=== PATIENT | male | born 1930 | race Hispanic/Latino ===

== ENCOUNTER 2018-01-14 02:39 | Emergency (ER) | payer MEDICARE, BC ==
[2018-01-14 03:56] LABS: Troponin I 0.019 ng/mL (< 0.028)
== END 2018-01-14 06:40 | disposition home or self-care (01) ==
LOC: ERS 02:39
DX: R19.00 Intra-abdominal and pelvic swelling, mass and lump, unspecified site (principal); R11.2 Nausea with vomiting, unspecified; E11.9 Type 2 diabetes mellitus without complications; I11.0 Hypertensive heart disease with heart failure; I50.9 Heart failure, unspecified; I25.10 Atherosclerotic heart disease of native coronary artery without angina pectoris; E78.5 Hyperlipidemia, unspecified; F41.9 Anxiety disorder, unspecified; F17.210 Nicotine dependence, cigarettes, uncomplicated; Z86.73 Personal history of transient ischemic attack (TIA), and cerebral infarction without residual deficits; Z79.82 Long term (current) use of aspirin; Z79.84 Long term (current) use of oral hypoglycemic drugs; Z79.02 Long term (current) use of antithrombotics/antiplatelets; Z79.899 Other long term (current) drug therapy
CPT/HCPCS: 36415; 83605; 84484; 93005; 96360

== ENCOUNTER 2018-02-12 12:56 | Inpatient (IN) | payer MEDICARE, BC ==
[2018-02-12 14:57] LABS: Troponin I 0.015 ng/mL (< 0.028)
[2018-02-12] MEDS ORDERED: Dextrose 50% Abboject 50 ML SYRINGE SLOW IVP PRN (16:56)
[2018-02-12] MEDS ORDERED: Ondansetron HCl/PF 4 MG/2 ML Vial IVP PRN (16:56)
[2018-02-12] MEDS ORDERED: Dextrose 5% in Water 1,000 ML IV PRN (16:56)
[2018-02-12] MEDS ORDERED: HumaLOG 300 UNITS/3 ML VIAL SC PRN (16:56)
[2018-02-12] MEDS ORDERED: Ondansetron ODT 4 MG TAB PO PRN (16:56)
[2018-02-12] MEDS ORDERED: HYDROcodone/Acetaminophen 5/325 mg Tablet PO PRN (16:56)
[2018-02-12] MEDS ORDERED: Enoxaparin Sodium 30 MG/0.3 ML SYRINGE SC SCH (16:56)
[2018-02-12 18:09] VITALS: BMI 24.6
--- NOTE | 2018-02-12 18:34 | CON ---
DATE OF CONSULTATION: 02/12/2018 PRIMARY RECEIVER SETTER: Charlee Brewster M.D. REASON FOR CONSULTATION: Bradycardia. HISTORY OF PRESENT ILLNESS: Mr. Sebastian is a pleasant 87-year-old white gentleman who comes to the [facility] for this abdominal pain. He was seen in the [facility] and was found to have heart rates charisma n to the 30s, so he was transferred over to this facility for admission. He has been having a slow h eart rate for a long long time. He has even had his metoprolol discontinued more recently secondary to this. He is followed by Dr. Brewster and he recently was seen for preoperative evaluation as he is gaines ving all these abdominal cramps and he was scheduled to have an echocardiogram as he has had a cardio myopathy in the past. Last EF was about a 43% in an MPI in 2017. In 2016, it was much lower at 25%- 30%. During this evaluation, he was found to be in atrial fibrillation with a slow ventricular respo nse, heart rates as low as 36 on recording on strips in the chart. Mr. Sebastian did not feel any lighth eadedness. No syncope or presyncope. PAST MEDICAL HISTORY: Include, 1. Coronary disease with stent placement in [place] 2007. 2. Peripheral vascular disease, status post left carotid endarterectomy in [place] 2008. 3. Cardiomyopathy, EF in 2016 was 25% to 30%; on stress test in 2017 it was 43%. 4. Hypertension. 5. Hyperlipidemia. 6. Type 2 diabetes. OUTPATIENT MEDICATIONS: Include, 1. Plavix 75 mg a day. 2. Lisinopril 10 mg a day. 3. Nitro sublingual. 4. Simvastatin 80 mg 1/2 tablet at bedtime. 5. Metformin 500 mg at bedtime. 6. Omeprazole 20 mg a day. 7. Aspirin 81 day a day. 8. Lasix 40 mg a day. 9. Amlodipine 5 mg a day. ALLERGIES: PENICILLIN. SOCIAL HISTORY: No alcohol, tobacco or drugs. 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 FAMILY HISTORY: Noncontributory. REVIEW OF SYSTEMS: A 12-point review of systems was done and is all negative unless stated in histor y of present illness. PHYSICAL EXAMINATION: VITAL SIGNS: Temperature 97.2, pulse between 36 and 60, blood pressure 118/62. GENERAL: Awake, alert, oriented x3, in no distress. HEENT: Normocephalic, atraumatic. NECK: Supple. LUNGS: Lungs are clear. HEART: Regular rate and heart rate in the 40s-50s. ABDOMEN: Soft, positive bowel sounds. EXTREMITIES: No edema. SKIN: Warm and dry. LABORATORY WORK: Reviewed. Troponin is negative. Glucose is normal. At outside facility, his sodi um is 141, potassium is 4.9, chloride of 108, CO2 of 23, anion gap of 15, glucose of 86, BUN of 24, c reatinine 1.5. GFR was 45, calcium 9.1, total bilirubin 0.5, alkaline phosphatase 67, AST 13, ALT 11 , total protein 6.8, albumin of 3.8, lipase of 25. Lactic acid undetectable, troponin is undetectabl e. White count of 6.1, red cells of 3.7, hemoglobin 9.6, hematocrit 29, platelet count of 320. Some EKG strips were reviewed. He is in atrial fibrillation with slow ventricular response at times down to the mid 30s. ASSESSMENT AND PLAN: 1. Atrial fibrillation with slow ventricular response. 2. Bradycardia, currently asymptomatic. 3. History of cardiomyopathy. 4. History of coronary artery disease, stable at this time. 5. Abdominal pain. PLAN: At this time, I am not 100% sure that he is a candidate for pacemaker. He has been completely asymptomatic and he has been dealing with his bradycardia for a long long time. He has been off of beta blockers as well. His atrial fibrillation is newly diagnosed and he is only on aspirin for stro ke prophylaxis given that he needs to be cleared by GI prior to anything as he is having a lot of abd ominal cramping. At this time, it is a class 2A indication to put in a pacemaker for heart rates und er 40. No AV mariluz blocking agents which would qualify Mr. Sebastian. We will continue to monitor over the weekend. We will get an echocardiogram to assess LV function and see what he really needs an AIC D and not just a pacemaker. Dr. Brewster is his primary Cardiology. We will leave the final decision to her, but at this time, most likely will need a pacemaker. Thank you for letting us to participate in the care of your patient.
[2018-02-12] MEDS: Famotidine/PF 20 mg/2ml Vial SLOW IVP SCH (22:33)
[2018-02-13 04:36] LABS: #Eosinphils 0.1 thou/uL (0.0-0.7); #Lymphocytes 1.1 thou/uL (1.20-3.40); #Monocytes 0.5 thou/uL (0.11-0.59); #Neutrophils 3.7 thou/uL (1.40-6.50); %Basophils 0.8 % (0.0-1.0); %Eosinophils 1.8 % (0.0-10.0); %Lymphocytes 20.4 % (21.0-51.0); %Monocytes 9.1 % (0.0-10.0); %Neutrophils 67.8 % (42.0-75.0); Hemoglobin 9.4 g/dL (14.0-18.0); Mean Corpuscular HGB CONC 33.4 g/dL (32.0-36.0); Mean Corpuscular Hemoglobin 27.3 pg (27.0-31.0); Mean Corpuscular Volume 81.8 fl (80.0-94.0); Mean Platelet Volume 6.7 fL (7.4-10.4); Platelet Count 307 thou/uL (130-400); Red Blood Cell (RBC) Count 3.43 mill/uL (4.70-6.10); White Blood Cell (WBC) Count 5.4 thou/uL (4.8-10.8)
[2018-02-13 04:42] LABS: Hemoglobin A1c 5.6 % (4.0-6.0)
[2018-02-13 04:43] LABS: ALT (SGPT) 9 U/L (8-55); AST (SGOT) 13 U/L (5-34); Albumin 3.5 g/dL (3.4-4.8); Alkaline Phosphatase 64 U/L (40-150); Anion Gap 10 mmol/L (10-20); BUN (Urea Nitrogen) 23 mg/dL (8.4-25.7); Bilirubin, Total 0.5 mg/dL (0.2-1.2); Calc. Creatinine Clearance 44 mL/min (70-130); Calcium 8.8 mg/dL (7.8-10.44); Carbon Dioxide 24 mmol/L (23-31); Cardiac Risk 3.3 (Less than 4.5); Chloride 108 mmol/L (98-107); Cholesterol 105 mg/dl (< 200 Desired); Estimated GFR-MDRD 56; Globulin 2.6 g/dL (2.4-3.5); Glucose 96 mg/dL (83-110); HDL Cholesterol 32 mg/dL (>60 Neg Risk); LDL Cholesterol, Calculated 56 mg/dL; Magnesium 2.1 mg/dL (1.6-2.6); Protein, Total 6.1 g/dL (5.8-8.1); Sodium 138 mmol/L (136-145); Triglycerides 83 mg/dL (Less than 150)
[2018-02-13] MEDS: Furosemide 40 MG TAB PO SCH (08:15)
[2018-02-13] MEDS: Famotidine/PF 20 mg/2ml Vial SLOW IVP SCH (08:15)
[2018-02-13] MEDS: Clopidogrel Bisulfate 75 MG TAB PO SCH (08:15)
[2018-02-13] MEDS: Lisinopril 20 MG TAB PO SCH (08:17)
--- NOTE | 2018-02-13 13:52 | PDOC.CTH ---
Cardiology Progress Note - Subjective He is doing well. - Objective Vital Signs Temp Pulse Resp BP BP Pulse Ox 02/13/18 11:31 97.9 F 47 L 16 97 02/13/18 08:17 152/68 H 02/13/18 08:15 98.0 F 45 L 18 152/68 H 99 02/13/18 07:54 98.0 F 45 L 18 99 02/13/18 04:15 98.1 F 35 L 12 145/54 H 98 Weight 167 lb 02/12/18 02/13/18 02/14/18 06:59 06:59 06:59 Output Total 200 Balance -200 - Physical Examination General/Neuro: alert & oriented x3, NAD Neck: no JVD present Lungs: unlabored respirations Heart: other: (Irreg, dean) Abdomen: NT/ND Extremities: other: (no edema) - Telemetry Telemetry Rhythm: Afib HR 30's to 60's - Labs Result Diagrams: 02/13/18 03:51 02/13/18 03:51 Troponin/CKMB Troponin I 0.015 ng/mL (< 0.028) 02/12/18 14:23 - Assessment/Plan 1. Afib SVR 2. Bradycardia 3. Dilated cardiomyopathy 4. CAD, stable. PLAN: - Echo pending today. - HR down to low 30's while awake at rest. - HR does increase when stands up or when he starts to talk. - Most likely he will need a pacemaker. - Echo will dictate wether a PPM or AICD needed.
--- NOTE | 2018-02-13 14:58 | PDOC.PN ---
- Subjective Encounter Start Date: 02/13/18 Encounter Start Time: 13:20 No events, HR in 30s to 40s, seen by cards, will let Brewster see agin in AM to decide on a PPM or not no CP no SOB, no N/V/d/C, no f/C all systems reviewed and neg x as per HPI - Objective Resuscitation Status: Resuscitation Status FULL:Full Resuscitation MAR Reviewed: Yes Vital Signs & Weight: Vital Signs (12 hours) Temp Pulse Resp BP BP Pulse Ox 02/13/18 11:31 97.9 F 47 L 16 97 02/13/18 08:17 152/68 H 02/13/18 08:15 98.0 F 45 L 18 152/68 H 99 02/13/18 07:54 98.0 F 45 L 18 99 02/13/18 04:15 98.1 F 35 L 12 145/54 H 98 Weight Weight 167 lb I&O: 02/12/18 02/13/18 02/14/18 06:59 06:59 06:59 Output Total 200 Balance -200 Result Diagrams: 02/13/18 03:51 02/13/18 03:51 Additional Labs: Accuchecks 02/13/18 02/13/18 02/12/18 10:46 06:00 22:25 POC Glucose 145 H 109 108 02/12/18 17:09 POC Glucose 85 Radiology Reviewed by me: Yes EKG Reviewed by me: Yes Phys Exam - Physical Examination Constitutional: NAD HEENT: PERRLA, moist MMs, sclera anicteric, oral pharynx no lesions Neck: no nodes, no JVD, supple, full ROM Respiratory: no wheezing, no rales, no rhonchi, clear to auscultation bilateral Cardiovascular: no significant murmur, no rub regualr, dean Gastrointestinal: soft, non-tender, no distention, positive bowel sounds Musculoskeletal: no edema, pulses present Neurological: non-focal, normal sensation, moves all 4 limbs Lymphatic: no nodes Psychiatric: normal affect, A&O x 3 Skin: no rash, normal turgor, cap refill <2 seconds Dx/Plan (1) Junctional bradycardia Code(s): R00.1 - BRADYCARDIA, UNSPECIFIED Status: Acute Comment: hold AVNBA. Card consult, likely yneeds a pacer. serial biomarkers (2) Chronic combined systolic (congestive) and diastolic (congestive) heart failure Code(s): I50.42 - CHRONIC COMBINED SYSTOLIC AND DIASTOLIC HRT FAIL Status: Chronic (3) Atrial flutter, chronic Code(s): I48.92 - UNSPECIFIED ATRIAL FLUTTER Status: Chronic (4) CAD (coronary artery disease) Code(s): I25.10 - ATHSCL HEART DISEASE OF [place] CORONARY ARTERY W/O ANG PCTRS Status: Chronic Qualifiers: Coronary Disease-Associated Artery/Lesion type: [place] artery [place] vs. transplanted heart: [place] heart Associated angina: without angina Qualified Code(s): I25.10 - Atherosclerotic heart disease of [place] coronary artery without angina pectoris (5) Diabetes type 2, controlled Code(s): E11.9 - TYPE 2 DIABETES MELLITUS WITHOUT COMPLICATIONS Status: Chronic Qualifiers: Diabetes mellitus budget consultant insulin use: without budget consultant use Diabetes mellitus complication status: with circulatory complication Diabetes mellitus complication detail: with other circulatory complications Qualified Code(s): E11.59 - Type 2 diabetes mellitus with other circulatory complications (6) Dyslipidemia Code(s): E78.5 - HYPERLIPIDEMIA, UNSPECIFIED Status: Chronic (7) Hypertension Code(s): I10 - ESSENTIAL (PRIMARY) HYPERTENSION Status: Chronic Qualifiers: Hypertension type: essential hypertension Qualified Code(s): I10 - Essential (primary) hypertension (8) Abdominal pain Code(s): R10.9 - UNSPECIFIED ABDOMINAL PAIN Status: Chronic Qualifiers: Abdominal location: generalized Qualified Code(s): R10.84 - Generalized abdominal pain - Plan cont current plan of care, respiratory therapy * .
--- NOTE | 2018-02-13 15:20 | HP ---
DATE OF ADMISSION: 02/12/2018 TIME OF SERVICE: 1400. PRIMARY CARE PHYSICIAN: Out of town. CHIEF COMPLAINT: Low heart rate. HISTORY OF PRESENT ILLNESS: Mr. Sebastian is an 87-year-old male with coronary artery dis ease, chronic systolic and diastolic CHF, diabetes mellitus type 2 non-insulin dependent, hyperlipide gabriel, hypertension and cerebrovascular disease. The patient went to the emergency department for complaints of abdominal pain 3 times over the last w twenty-nine palms or so. I think he might have mesenteric ischemia. He is currently in the process of getting [facility] work[facility] to have a full evaluation and possible surgery, supposed to see Dr. Brewster in the clinic an d have an echo done on 02/22/2018. The patient is complaining really of abdominal pain that is crampy in nature and has really been rin g on for the last 2-3 months overall. No GI bleeding, no nausea and vomiting. No other current comp laints. The patient presented initially to the outside Emergency Department and subsequently transferred here . Per the ER notes here, during transport, the patient's heart rate did drop down to 23 at one point . Blood pressure has been in the higher end at 171/71 and the patient has no other complaints. PAST MEDICAL HISTORY: 1. Coronary artery disease. 2. CHF, chronic systolic and diastolic. 3. Diabetes mellitus type 2, non-insulin dependent. 4. Hyperlipidemia, primary cholesterol. 5. Hypertension. 6. Cerebrovascular disease, status post CVA. 7. Anxiety. 8. Ischemic cardiomyopathy. 9. Diverticulosis. PAST SURGICAL HISTORY: Include PTCA, PCI with stent placement in the past. The patient denies any carotid surgery, though it is listed as him having a carotid endarterectomy an d a gallbladder in 2017. HOME MEDICATIONS: 1. Aspirin 81 mg daily. 2. Lisinopril 20 mg p.o. daily. 3. Metformin 500 mg p.o. q.p.m. 4. Lasix 40 mg p.o. daily. 5. Glipizide 5 mg daily. 6. Zocor 40 mg p.o. at bedtime. 7. Plavix 75 mg daily. 8. Carafate as needed. ALLERGIES: PENICILLIN causes a rash and itching. FAMILY HISTORY: Negative for colonic bleeding disorder. No immune dysfunction. He is above the age for premature coronary artery disease. SOCIAL HISTORY: Significant for ongoing tobacco, approximately one-half pack per day. He drinks soc ial alcohol, but no IV drug use history. REVIEW OF SYSTEMS: All systems were reviewed and negative except as stated as per HPI. PHYSICAL EXAMINATION: VITAL SIGNS: Temperature 97.6, pulse on arrival to floor is 40, blood pressure 138/60, respiratory r ate 20, satting 97% on room air. GENERAL: He is awake. He is alert. He is oriented x3. Elderly male, appears to be in no acute distress. HEENT: Normocephalic, atraumatic. Pupils are equal and reactive to light bilaterally. Mucous membr anes are moist. There is no visible lesion, no thrush. NECK: Supple. No lymphadenopathy, no JVD, no thyromegaly. I do not see a carotid endarterectomy sc ar. There is no upstroke delay. He has no bruits. RESPIRATORY: Lungs are clear. No wheezes, no rales, no rhonchi. Good air movement. CARDIOVASCULAR: Normal S1, S2. He has a 2-3/6 holosystolic murmur heard best at the apex. SKIN: Otherwise warm and well perfused. There are no other rashes or lesions. NEUROLOGIC: Cranial nerves II-XII are grossly intact. He has no focal deficits. MUSCULOSKELETAL: Normal to inspection. Large joints appeared normal. No evidence of inflammation. No palpable effusions. LABORATORY DATA: Sodium 141, potassium 4.9, chloride 108, bicarb 23, BUN 24, creatinine 1.5, glucose 86 and calcium 9.69. Liver functions are normal. CBC showed a white count of 6.1, hemoglobin 9.6, hematocrit of 29.2, platelet count of 326,000. Lipa se normal at 25. Troponin I of 0.015. Lactic acid is less than 1.5. EKG showed junctional bradycardia around 40. ASSESSMENT AND PLAN: 1. Symptomatic bradycardia: The patient has a junctional escape rhythm. The patient will be seen b y Cardiology. I suspect he may need a pacemaker if this drops down in the 20s. 2. History of coronary artery disease. Vitals are normal. 3. Chronic combined systolic and diastolic congestive heart failure without acute exacerbation. 4. Diabetes mellitus type 2, we will hold his glipizide and n.p.o. until seen by Cardiology. We helen l subsequently use the sliding scale insulin for correction. 5. Hyperlipidemia, on Zocor. 6. Hypertension, on lisinopril and Lasix. We will continue for the time being. 7. Cerebrovascular disease, status post cerebrovascular accident with no residual effects. 8. Ischemic cardiomyopathy. 9. Diverticulosis without diverticulitis. I will place the patient in inpatient status. We will follow up with Cardiology recommendation.
[2018-02-13] MEDS: Acetaminophen 325 MG TAB PO PRN (15:25)
[2018-02-13] MEDS: Morphine 4 MG/ML VIAL SLOW IVP PRN (16:09)
[2018-02-13] MEDS ORDERED: Nitroglycerin 2% Ointment 1 INCH/1 GM Packet TOP PRN (16:54)
[2018-02-13] MEDS ORDERED: Promethazine 25 MG TAB PO PRN (16:55)
[2018-02-13] MEDS ORDERED: [UNRECOGNIZED DRUG - OTHER] SLOW IVP SCH (20:00)
[2018-02-13] MEDS ORDERED: traMADol HCl 50 MG TAB PO PRN (20:38)
[2018-02-13] MEDS ORDERED: Morphine 4 MG/ML VIAL SLOW IVP SCH (20:45)
[2018-02-14] MEDS: Morphine 4 MG/ML VIAL SLOW IVP PRN ×2 (05:05→13:37)
[2018-02-14 05:49] LABS: #Lymphocytes 1.2 thou/uL (1.20-3.40); #Monocytes 0.6 thou/uL (0.11-0.59); #Neutrophils 4.5 thou/uL (1.40-6.50); %Basophils 0.2 % (0.0-1.0); %Eosinophils 0.2 % (0.0-10.0); %Lymphocytes 18.3 % (21.0-51.0); %Monocytes 9.5 % (0.0-10.0); %Neutrophils 71.8 % (42.0-75.0); Hemoglobin 9.6 g/dL (14.0-18.0); Mean Corpuscular HGB CONC 33.2 g/dL (32.0-36.0); Mean Corpuscular Hemoglobin 26.6 pg (27.0-31.0); Mean Corpuscular Volume 80.3 fl (80.0-94.0); Mean Platelet Volume 6.6 fL (7.4-10.4); Platelet Count 310 thou/uL (130-400); RBC Distribution Width 13.1 % (11.5-14.5); Red Blood Cell (RBC) Count 3.61 mill/uL (4.70-6.10); White Blood Cell (WBC) Count 6.3 thou/uL (4.8-10.8)
[2018-02-14 06:03] LABS: ALT (SGPT) 11 U/L (8-55); AST (SGOT) 16 U/L (5-34); Albumin 3.7 g/dL (3.4-4.8); Alkaline Phosphatase 69 U/L (40-150); Anion Gap 9 mmol/L (10-20); BUN (Urea Nitrogen) 23 mg/dL (8.4-25.7); Bilirubin, Total 0.5 mg/dL (0.2-1.2); Calc. Creatinine Clearance 37 mL/min (70-130); Calcium 8.9 mg/dL (7.8-10.44); Carbon Dioxide 30 mmol/L (23-31); Chloride 103 mmol/L (98-107); Estimated GFR-MDRD 45; Globulin 2.8 g/dL (2.4-3.5); Glucose 120 mg/dL (83-110); Magnesium 2.3 mg/dL (1.6-2.6); Potassium 3.9 mmol/L (3.5-5.1); Protein, Total 6.5 g/dL (5.8-8.1); Sodium 138 mmol/L (136-145)
[2018-02-14] MEDS ORDERED: Famotidine/PF 20 mg/2ml Vial SLOW IVP SCH (09:00)
[2018-02-14] MEDS: Famotidine 20 MG TAB PO SCH (09:17)
[2018-02-14] MEDS: Furosemide 40 MG TAB PO SCH (09:17)
[2018-02-14] MEDS: Clopidogrel Bisulfate 75 MG TAB PO SCH (09:18)
[2018-02-14] MEDS: Lisinopril 20 MG TAB PO SCH (09:18)
[2018-02-14] MEDS: Acetaminophen 325 MG TAB PO PRN (09:19)
--- NOTE | 2018-02-14 10:49 | CON ---
DATE OF CONSULTATION: 02/14/2018 REQUESTING PHYSICIAN: Dr. Charlee Brewster REASON FOR CONSULTATION: Bradycardia, left ventricular dysfunction. HISTORY OF PRESENT ILLNESS: This is an 87-year-old gentleman with history of left ventricular dysfun ction. He has had a stent placed in 2008. His cardiomyopathy in 2016 was about 25-30%. He has got diabetes. He has had a history of bradycardia and has been taken off of his beta blockers due to sym ptomatic bradycardia. He was admitted to the hospital with some abdominal pain and had slow heart ra heike while in the Emergency Room and was transferred here for further evaluation. While here, his hea rt rates have been mostly reasonable with occasional pauses over 3 seconds early in the morning. We were asked to see him for evaluation. PAST MEDICAL HISTORY: Coronary artery disease, peripheral vascular disease, cardiomyopathy, hyperten katherine, hyperlipidemia, diabetes. HOME MEDICATIONS: Include Plavix, lisinopril, nitroglycerin, simvastatin, metformin, omeprazole, asp irin, Lasix and amlodipine. ALLERGIES: PENICILLIN. FAMILY HISTORY: Noncontributory. SOCIAL HISTORY: No alcohol, tobacco or drugs. REVIEW OF SYSTEMS: Comprehensive review of systems otherwise unremarkable. In particular, there are no fevers, chills, nausea, vomiting, diarrhea, change in hearing, taste, vision, smell, abdominal di scomfort, chest discomfort, blood in the urine, blood in the stool, ataxia, depression or anxiety. PHYSICAL EXAMINATION: GENERAL: He is comfortable in no acute distress. VITAL SIGNS: Blood pressure is 150/50, heart rate is 81 and regular. NECK: Reveals no increased JVD. HEART: Irregularly irregular, normal S1, S2. LUNGS: Clear to auscultation. ABDOMEN: Soft, nontender. EXTREMITIES: Show no clubbing, cyanosis, or edema. LABORATORY STUDIES: A 12-lead ECG done upon admission shows him to be in atrial fibrillation with th e rate varying between 40-60 beats per minute. IMPRESSION: 1. Cardiomyopathy, left ventricular dysfunction. 2. Bradycardia. RECOMMENDATIONS: Mr. Sebastian has bradycardia with occasional pauses, albeit in atrial fibrillation. H is heart rates are slow. In addition to this he does have left ventricular dysfunction over several years despite guideline-based medical therapy. Obviously, he is unable to take beta blockers due to the slow heart rate. I think a reasonable option in him may be to go ahead and place a single chambe r defibrillator given his left ventricular dysfunction and his history of atrial fibrillation. This can be programmed to about 40 beats per minute. I do not think this will pace too much at that rate. Certainly if he does have increased pacing requirements then a SKIVER BLOCKERS device may be something to consi justice. We will go ahead and get this arranged for him in the near future, hopefully today.
[2018-02-14] MEDS ORDERED: Lidocaine 1% (PF) 30 ML VIAL ONE (11:10)
[2018-02-14] MEDS ORDERED: Propofol 500 MG/50 ML VIAL ONE (11:46)
[2018-02-14] MEDS ORDERED: Midazolam HCl 2 mg/2 ml Vial ONE (11:46)
[2018-02-14] MEDS ORDERED: Clindamycin/D5W 900 mg/50 ml Premix Bag ONE (11:58)
[2018-02-14] MEDS ORDERED: Levofloxacin 500 mg/D5W 100 ml Premix Bag ONE (11:58)
[2018-02-14] MEDS ORDERED: Vancomycin HCl 500 MG VIAL ONE (12:16)
--- NOTE | 2018-02-14 12:22 | PDOC.CTH ---
<Jolanta Alcala - Last Filed: 02/14/18 12:20> Cardiology Progress Note - Subjective The pt seen and examined. No overnight events. No cardiac complaints. Plan for AICD placement today. - Objective Vital Signs Temp Pulse Resp BP BP Pulse Ox 02/14/18 09:18 159/57 H 02/14/18 08:00 97.9 F 43 L 16 97 02/14/18 07:59 97.9 F 43 L 16 159/57 H 97 02/14/18 04:00 97.9 F 59 L 14 150/50 H 97 Weight 167 lb 02/13/18 02/14/18 02/15/18 06:59 06:59 06:59 Intake Total 240 Output Total 200 Balance -200 240 - Physical Examination General/Neuro: alert & oriented x3 Neck: no JVD present Lungs: CTA Heart: other: (irregular) Abdomen: soft Extremities: other: (No edema) - Telemetry Telemetry Rhythm: AFib 30-40s - Labs Result Diagrams: 02/14/18 04:50 02/14/18 04:50 Troponin/CKMB Troponin I 0.015 ng/mL (< 0.028) 02/12/18 14:23 - Assessment/Plan 1. Junctional bradycardia - HR has been 30-40s with AFib per tele record. Plan for AICD today. 2. Chronic systolic HF - Echo on 02/11/18 showed EF 20-25%, severe septal hypokinesis, severe apical hypokinesis, mod dilated LA, mild MR, mild TR, and mild MD. Plan for AICD today. 3. Afib - remains in AFib; On ASA, but no OAC due to ABD pain. H&H are low, but stable. The pt may need EGD/colonoscopy prior to staring OAC. 4. CAD with Hx of stent in 2007 - stable; cont. to monitor on tele 5. HTN - stable 6. Hyperlipidemia - start Simvastatin 40mg qd from [facility]. 7. DM type 2 - managed by PCP 8. Anemia - H&H are low, but stable. MAR reviewed Review of Systems - Review of Systems Constitutional: reports: no symptoms reported EENTM: reports: no symptoms reported Respiratory: reports: no symptoms reported Cardiac (ROS): reports: no symptoms reported ABD/GI: reports: no symptoms reported : reports: no symptoms reported Musculoskeletal: reports: no symptoms reported <Taylor Brewster - Last Filed: 02/14/18 17:55> Cardiology Progress Note - Objective Vital Signs Temp Pulse Resp BP BP Pulse Ox 02/14/18 16:00 97.8 F 46 L 18 135/60 94 L 02/14/18 13:40 97.9 F 43 L 16 107/41 L 97 02/14/18 09:18 159/57 H 02/14/18 08:00 97.9 F 43 L 16 97 02/14/18 07:59 97.9 F 43 L 16 159/57 H 97 Weight 167 lb 02/13/18 02/14/18 02/15/18 06:59 06:59 06:59 Intake Total 240 Output Total 200 Balance -200 240 - Labs Result Diagrams: 02/14/18 04:50 02/14/18 04:50 Troponin/CKMB Troponin I 0.015 ng/mL (< 0.028) 02/12/18 14:23 - Assessment/Plan Pt.seen and eval. by me.I agree with the A/P by the ASSISTANT DEAN OF STUDENTS. He did have an AICD implanted today. This is not a Bi-ventricular device. He is still complaining of abd. pain. From a cardiac standpoint he is a candidate for colonoscopy and endoscopy as indicated. I would consider a GI consult and possible endoscopy prior to d/c. Chest clear,irreg rhythm. Site s/p AICD looks good.If no further GI workup as an outpt., then could d/c pt. to home tomorow. He can f/u in clinic. He has problems with transportation otherwise he could be seen in the CHF clinic.
--- NOTE | 2018-02-14 12:56 | OP ---
DATE OF PROCEDURE: 02/14/2018 PROCEDURE: Implantation of single chamber ICD. PREOPERATIVE DIAGNOSIS: Ischemic cardiomyopathy with [place] Heart Association class 2-3, EF 25-35% . PROCEDURE DETAILS: The patient came to the EP Lab in the post absorptive state. Informed consent wa s obtained. A timeout was called. The patient sedated by a member of the Anesthesia staff. Once th e patient was adequately sedated, the left chest area was prepped and draped in usual sterile fashion . A 10 mL venogram demonstrated patency of left subclavian vein system. Lidocaine was infused in th e area over the left deltopectoral groove below the clavicle, a 3 cm incision was made parallel to th e deltopectoral groove, but slightly more medial. The incision was carried down to the prepectoral f ascia using combination of electrocautery and blunt dissection. A pocket was formed over the prepect oral fascia. Using modified Seldinger technique, access was obtained x1 in the distal axillary vein. Through this, a 9 Romanian peel-away sheath was placed and through this a Medtronic lead 6935M-62 cm lead, serial number [id number] was advanced and placed in the right ventricular septum area. Once a dequate thresholds and sensing was obtained, the lead was secured by extension of the helix. The merissa d was then secured to the prepectoral fascia using #0 silk suture x2. This was then connected to Med tronic single chamber device. This is a [place] VR serial number [id number]. Final numbers were a s follows; R-wave 15.8, impedance 456, threshold 0.75 volts at 0.4 milliseconds high voltage impedanc e was 58. The device was set at VVI 40. The pocket was then copiously irrigated with antibiotic kassandra ution and then the ICD was placed in the pocket with care to ensure that the lead was underneath the ICD. A stay suture was utilized as well. The pocket was then closed with a combination of 2-0 and 3 -0 and 4-0 Vicryl suture followed by Dermabond for the skin. The device was programmed for VF at 300 milliseconds. VT2 240 and VT1 350 milliseconds. No DFT testing was performed since patient was not anticoagulated and in chronic atrial fibrillation. CONCLUSIONS: Successful implantation of single chamber ICD. RECOMMENDATIONS: The patient will be at bed rest. He will be evaluated. He will take antibiotics f or several days. We will receive a chest x-ray. If he demonstrates high amount of ventricular pacin g then he may be indicated for an upgrade to a PRETZEL TWISTING MACHINE OPERATOR device in the future. POSTOPERATIVE DIAGNOSES: Ischemic cardiomyopathy, low ejection fraction on guideline based medical t herapy. ESTIMATED BLOOD LOSS: Less than 30 mL. COMPLICATIONS: None acute. PROCEDURE PERFORMED: Implantation of single chamber ICD.
[2018-02-14] MEDS ORDERED: Ondansetron HCl/PF 4 MG/2 ML Vial IVP PRN (12:59)
[2018-02-14] MEDS ORDERED: Promethazine HCl 25 MG/ML VIAL SLOW IVP PRN (12:59)
[2018-02-14] MEDS ORDERED: Morphine Sulfate 2 MG/ML SYRINGE SLOW IVP PRN (12:59)
[2018-02-14] MEDS ORDERED: Promethazine HCl 25 MG/ML VIAL IM PRN (12:59)
[2018-02-14] MEDS: Clindamycin 150 MG CAP PO SCH ×2 (13:36→21:24)
[2018-02-14] MEDS ORDERED: PROPOFOL 200 MG/20 ML VIAL ONE (13:54)
--- NOTE | 2018-02-14 14:38 | RAD ---
PORTABLE UPRIGHT FRONTAL CHEST RADIOGRAPH: Date: 02/14/18 COMPARISON: 09/01/16. HISTORY: Arrhythmia. FINDINGS: There is a single lead AICD inserted via left-sided approach, with a lead overlying the expected loca tion of the coronary sinus. There is prominence of the cardiac silhouette and atherosclerotic calcifi cation of the aortic arch, stable. No pneumothorax, pleural fluid, focal consolidation, or alveolar e elba. IMPRESSION: No focal consolidation or alveolar edema. POS: DAVID
[2018-02-14] MEDS ORDERED: Iopamidol 370 76% 50 ML VIAL FS ONE (14:48)
[2018-02-14] MEDS: Doxycycline 100 MG CAP PO SCH (20:27)
[2018-02-14] MEDS ORDERED: Simvastatin 40 MG TAB PO SCH (21:00)
[2018-02-15] MEDS: Clindamycin 150 MG CAP PO SCH ×2 (06:13→13:43)
--- NOTE | 2018-02-15 08:00 | RAD ---
PORTABLE UPRIGHT FRONTAL CHEST RADIOGRAPH: DATE: 02/15/18. COMPARISON: 09/01/16. HISTORY: Status post placement of defibrillator. FINDINGS: Single-lead AICD present, inserted via left subclavian approach, with the lad overlying the region of the coronary sinus. Heart and mediastinal contours are stable. No pneumothorax, pleural fluid, foc al consolidation, or alveolar edema. IMPRESSION: Single-lead automatic implantable cardioverter/defibrillator with no pneumothorax. POS: DAVID
--- NOTE | 2018-02-15 08:44 | PDOC.CTH ---
Cardiology Progress Note - Subjective The pt seen and examined. No overnight events. No cardiac complaints. He continues ABD pain. Erythema, but no swelling or drainage from AICD site. - Objective Vital Signs Temp Pulse Resp BP Pulse Ox 02/15/18 07:35 99 F 57 L 16 147/65 H 99 02/15/18 04:00 98.0 F 50 L 16 135/58 L 100 02/15/18 00:00 98.5 F 50 L 16 154/57 H 99 Weight 167 lb 02/14/18 02/15/18 02/16/18 06:59 06:59 06:59 Intake Total 240 240 Output Total 50 Balance 240 190 - Physical Examination General/Neuro: alert & oriented x3 Neck: no JVD present Lungs: CTA Heart: other: (irregular) Abdomen: soft Extremities: other: (No edema) - Telemetry Telemetry Rhythm: AFib 40-80s - Labs Result Diagrams: 02/14/18 04:50 02/14/18 04:50 Troponin/CKMB Troponin I 0.015 ng/mL (< 0.028) 02/12/18 14:23 - Assessment/Plan 1. 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 2. Chronic systolic HF - Echo on 02/11/18 showed EF 20-25%, severe septal hypokinesis, severe apical hypokinesis, mod dilated LA, mild MR, mild TR, and mild [place]. S/p AICD on 02/14/18. 3. Afib - remains in AFib; On ASA, but no OAC due to ABD pain. H&H are low, but stable. GI consult was ordered. Once cleared by GI, will start OAC. 4. CAD with Hx of stent in 2007 - stable; cont. to monitor on tele 5. HTN - resume NOrvasc 5mg daily from this AM. Cont. to monitor 6. Hyperlipidemia - On Simvastatin 40mg qd. 7. DM type 2 - managed by PCP 8. Anemia - H&H are low, but stable. 9. ABD pain - GI consult was ordered. From a cardiac standpoint he is a candidate for colonoscopy and endoscopy as indicated. MAR reviewed * He has problems with transportation otherwise he could be seen in the CHF clinic. Review of Systems - Review of Systems Constitutional: reports: no symptoms reported EENTM: reports: no symptoms reported Respiratory: reports: no symptoms reported Cardiac (ROS): reports: no symptoms reported ABD/GI: reports: see HPI : reports: no symptoms reported Musculoskeletal: reports: no symptoms reported Skin: reports: see HPI
[2018-02-15] MEDS: Famotidine 20 MG TAB PO SCH (08:58)
[2018-02-15] MEDS: Furosemide 40 MG TAB PO SCH (08:58)
[2018-02-15] MEDS: Doxycycline 100 MG CAP PO SCH (08:58)
[2018-02-15] MEDS: Clopidogrel Bisulfate 75 MG TAB PO SCH (08:59)
[2018-02-15] MEDS: Lisinopril 20 MG TAB PO SCH (08:59)
[2018-02-15] MEDS ORDERED: Amlodipine 5 MG TAB PO SCH (09:00)
--- NOTE | 2018-02-15 10:21 | PDOC.CTH ---
Cardiology Progress Note - Subjective EP progress note: Patient seen and evaluated. No new cardiac concerns or complaints this AM. Possible DC once cleared by GI. Minimal site tenderness at ICD implant. Denies dizziness, passing out, or increasing shortness of breath. - Objective Vital Signs Temp Pulse Resp BP BP Pulse Ox 02/15/18 09:04 57 L 147/65 H 02/15/18 08:59 147/65 H 02/15/18 08:00 99 F 57 L 16 99 02/15/18 07:35 99 F 57 L 16 147/65 H 99 02/15/18 04:00 98.0 F 50 L 16 135/58 L 100 02/15/18 00:00 98.5 F 50 L 16 154/57 H 99 Weight 167 lb 02/14/18 02/15/18 02/16/18 06:59 06:59 06:59 Intake Total 240 240 Output Total 50 Balance 240 190 - Physical Examination General/Neuro: alert & oriented x3, NAD Neck: no JVD present Lungs: unlabored respirations Abdomen: NT/ND, soft - Telemetry Telemetry Rhythm: AF, demand DOWELER - Labs Result Diagrams: 02/14/18 04:50 02/14/18 04:50 Troponin/CKMB Troponin I 0.015 ng/mL (< 0.028) 02/12/18 14:23 - Assessment/Plan 1. Cardiomyopathy, LV dysfunction s/p single lead ICD implant 02/14/18. CXR stable this AM. Device interrogation performed and unremarkable. VVI 40. DOWELER 31% . Continue clindamycin upon DC as currently ordered. wound check with [facility]CA clinic in 7-10 days. No driving for 2 weeks to allow for healing and prevent lead from dislodging. 2. Chronic AF- DAPT only for CVA prophylaxis. 3. Sick sinus syndrome- DOWELER 31% with new ICD. Monitor for pacemaker syndrome and high grade RV pacing as outpatient and consider Bi-V upgrade if needed. Recommend against any AV mariluz blocking agents.
[2018-02-15 11:49] VITALS: BP 116/52; TEMP 98.2
--- NOTE | 2018-02-15 15:07 | DIS ---
DATE OF ADMISSION: 02/12/2018 DATE OF DISCHARGE: 02/15/2018 PRIMARY CARE PHYSICIAN: Dr. Cordell Iraheta. DISCHARGE DIAGNOSES: 1. Junctional bradycardia, symptomatic. 2. Status post permanent pacemaker/ automated implantable cardioverter defibrillator placement. 3. Chronic abdominal pain, presumed mesenteric ischemia. 4. Diabetes mellitus type 2 without complications. 5. History of coronary artery disease. 6. Chronic combined systolic and diastolic congestive heart failure. 7. Chronic atrial fibrillation. 8. Hypertension, essential. 9. Hyperlipidemia. CONSULTATIONS: Cardiology, Dr. Joseph Soler. PROCEDURES: 1. AICD/permanent pacemaker implantation, 02/14/2018. 2. Echocardiogram, two-dimensional 02/13/2018 that showed EF of 20%-25%, atrial fibrillation, heart rate 34-55, severe septal and apical hypokinesis, mildly dilated LA, mild MR, TR, PI, and elevated RV SP at 45 mm. HISTORY AND PHYSICAL: Mr. Sebastian is an 87-year-old male with the above history with multiple admissio ns to the emergency department last week for abdominal pain. He was seen in an outside Emergency Dep artment. En route to transport, his heart rate dropped as low as 23. Workup was initially negative with lana l troponins and normal blood counts. He was subsequently sent here for bradycardia. On arrival here, we were called for admission. HOSPITAL COURSE: The patient was seen and examined by me. The patient was placed on telemetry on an inpatient status. Cardiology was consulted for pacemaker consideration. He was seen by Dr. Soler that evening, he was not 100% convinced that he is going to have pacemaker. He has been relatively asymptomatic on arrival here and has been having the bradycardia for some ti me. He held all AV mariluz blocking agents and was continued to be monitored. Echocardiogram was orde red. By 02/13/2018, the patient was feeling better. I had no overnight events. Echocardiogram was done t hat showed an EF of 20%-25% and the patient then qualify for AICD placement. That evening, he develo ped some acute abdominal pain and was treated with IV morphine and it improved. Otherwise, he was as ymptomatic the rest of the time. On 02/14/2018, he was seen by Dr. Brewster. He has been kept n.p.o. She did feel he would benefit from pacemaker as his normal rate was somewhere around in the mid 30s. Given that he needs AICD for his l ow EF, an AICD/permanent pacemaker was implanted. Overnight 02/14/2018-02/15/2018, the patient did well and he had no further abdominal pain. He deman ded to see a pharmacognosist or he would go back straight to the ER for evaluation for recurrent a bdominal pain. I did speak with Dr. Rust who was on-call for the GI group and he said he would be ei ther late in the afternoon. I spoke to Dr. Yun who is on vacation in [place] and would not be able to come see the patient any earlier. The patient was kept in the hospital today. At approximately 1430, he did not feel like waiting until the evening to see Gastroenterology since he had no more sym ptoms and patient was discharged with outpatient followup. PHYSICAL EXAMINATION: The patient was seen and examined on the day of discharge. Discharge plan and disposition discussed with the patient and son. The patient was seen and examined at the bedside. DISCHARGE MEDICATIONS: 1. Tylenol #3 one to two q.6 hours p.r.n. 2. Amlodipine 5 mg daily. 3. Aspirin 81 mg daily. 4. Fioricet 1 tab p.o. q.4 h. p.r.n. pain. 5. Plavix 75 mg daily. 6. Famotidine 20 mg p.o. b.i.d. 7. Lasix 40 mg p.o. b.i.d. 8. Glipizide 2.5 mg p.o. b.i.d. 9. Lisinopril 20 mg daily. 10. Metformin 500 mg p.o. q.p.m. 11. Metoprolol succinate 50 mg p.o. daily. 12. Multivitamin daily. 13. Omeprazole 20 mg daily. 14. Actos 15 mg daily. 15. Zocor 40 mg at bedtime. 16. Flomax 0.4 mg daily. FOLLOWUP APPOINTMENTS: 1. Primary care physician within a week. 2. Dr. Brewster as scheduled. DISCHARGE ACTIVITY: Per cardiopulmonary limits. DISCHARGE DIET: Heart healthy diabetic diet recommended. DISCHARGE CONDITION: Stable. DISPOSITION: Being discharged home via private vehicle in [place] with his son.
== END 2018-02-15 14:43 | disposition home or self-care (01) | DRG 227 ==
LOC: ERS 12:56 → 2SE 15:51
PROVIDERS: ADMIT Internal Medicine Infectious Disease; ATTEND Internal Medicine Infectious Disease
PROC: 0JH608Z Insertion of Defibrillator Generator into Chest Subcutaneous Tissue and Fascia, Open Approach (ICD-10-PCS; principal; 2018-02-14)
PROC: 02HK3KZ Insertion of Defibrillator Lead into Right Ventricle, Percutaneous Approach (ICD-10-PCS; 2018-02-14)
DX: I49.5 Sick sinus syndrome (principal); I50.42 Chronic combined systolic (congestive) and diastolic (congestive) heart failure; I48.92 Unspecified atrial flutter; R00.1 Bradycardia, unspecified; I11.0 Hypertensive heart disease with heart failure; I48.2 Chronic atrial fibrillation; I25.5 Ischemic cardiomyopathy; I42.0 Dilated cardiomyopathy; I25.10 Atherosclerotic heart disease of native coronary artery without angina pectoris; E11.9 Type 2 diabetes mellitus without complications; E78.5 Hyperlipidemia, unspecified; K57.90 Diverticulosis of intestine, part unspecified, without perforation or abscess without bleeding; F41.9 Anxiety disorder, unspecified; G89.29 Other chronic pain; R10.9 Unspecified abdominal pain; D64.9 Anemia, unspecified; Z88.0 Allergy status to penicillin; Z95.5 Presence of coronary angioplasty implant and graft; Z79.02 Long term (current) use of antithrombotics/antiplatelets; Z79.82 Long term (current) use of aspirin; Z79.899 Other long term (current) drug therapy; Z86.73 Personal history of transient ischemic attack (TIA), and cerebral infarction without residual deficits
CPT/HCPCS: 33249; 36005; 36415; 36416; 71045; 75820; 80053; 80061; 83036; 83735; 84484; 85025; 93005; 93010; 93306; C1722; C1777; J1650; J1956; J2001; J2250; J2270; J2405; J2704; J3370; J3490; Q0162; S0028

== ENCOUNTER 2018-03-01 09:10 | Day surgery (SDC) | payer MEDICARE, BC ==
--- NOTE | 2018-03-01 12:22 | OP ---
DATE OF PROCEDURE: 03/01/2018 PROCEDURE: Esophagogastroduodenoscopy with control of hemorrhage and colonoscopy. PREOPERATIVE DIAGNOSIS: Iron deficiency anemia. PROCEDURE IN DETAIL: Informed consent was obtained from the patient. He was sedated with total intr avenous anesthesia. The bite block was placed and the endoscope was advanced easily to the second po rtion of the duodenum and retroflexion was performed in the stomach. The esophagus was normal. The GE junction was normal. The stomach had a 6-mm red arteriovenous malformation in the body of the sto mach along the lesser curvature. This was cauterized with a 7-Kazakh gold probe with good hemostasis confirmed. The remainder of the gastric mucosa was normal. The pylorus and first and second portio ns of the duodenum were normal. The patient was turned around. Rectal exam was performed that was n ormal. The preparation quality was fair to good. The colonoscope was advanced easily to the termina l ileum. The mucosa of the terminal ileum was normal. The ileocecal valve and appendiceal orifice w ere clearly identified. There was moderate to severe diverticulosis throughout the colon. Retroflex views in the rectum revealed moderate internal hemorrhoids. The remainder of the colonic mucosa was normal. IMPRESSION: 1. 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 2. Otherwise normal esophagogastroduodenoscopy. 3. Diverticulosis throughout the colon. 4. Moderate internal hemorrhoids. 5. Otherwise, normal colonoscopy. RECOMMENDATIONS: 1. Follow up in GI Clinic. 2. Follow the hemoglobin and evaluate response of the anemia to the cautery of the vascular ectasia.
== END 2018-03-01 12:50 | disposition home or self-care (01) ==
LOC: SDC 09:10
PROVIDERS: ATTEND Internal Medicine Gastroenterology
PROC: 0D568ZZ Destruction of Stomach, Via Natural or Artificial Opening Endoscopic (ICD-10-PCS; principal; 2018-03-01)
PROC: 0DJD8ZZ Inspection of Lower Intestinal Tract, Via Natural or Artificial Opening Endoscopic (ICD-10-PCS; 2018-03-01)
DX: K64.8 Other hemorrhoids (principal); D64.9 Anemia, unspecified; K31.819 Angiodysplasia of stomach and duodenum without bleeding; E11.9 Type 2 diabetes mellitus without complications; I42.9 Cardiomyopathy, unspecified; Z88.0 Allergy status to penicillin; Z91.011 Allergy to milk products; Z79.02 Long term (current) use of antithrombotics/antiplatelets; Z79.84 Long term (current) use of oral hypoglycemic drugs; Z79.82 Long term (current) use of aspirin; Z79.899 Other long term (current) drug therapy

== ENCOUNTER 2018-09-29 07:50 | Outpatient (CLI) | payer MEDICARE, BC ==
--- NOTE | 2018-09-29 10:07 | CT ---
CT ABDOMEN AND PELVIS WITH IV AND ORAL CONTRAST: History: Abdominal pain. Anemia. Gas and bloating. FINDINGS: Lung bases are clear. Cysts of the liver and kidneys are stable. Prominent arterial calcification inc luding stenosis at the origin of the renal arteries and superior mesenteric artery. The bowel is with in normal limits without focal mass or wall thickening. Diverticula arise from the colon without john cent inflammation. Degenerative changes lumbar spine. IMPRESSION: 1. Diverticulosis. No evidence of diverticulitis. 2. No evidence of bowel inflammation or obstruction. 3. Prominent atherosclerosis. POS: DAVID
[2018-09-29] MEDS ORDERED: ISOVUE-370 76%-LOCM 1 ML ONE (11:21)
== END 2018-09-29 07:51 | disposition home or self-care (01) ==
LOC: BICCT 07:50
PROVIDERS: ATTEND Internal Medicine Gastroenterology
DX: R10.84 Generalized abdominal pain (principal); R14.2 Eructation; D50.9 Iron deficiency anemia, unspecified; I70.90 Unspecified atherosclerosis; K57.90 Diverticulosis of intestine, part unspecified, without perforation or abscess without bleeding
CPT/HCPCS: 74177; 82565

== ENCOUNTER 2018-10-08 04:06 | Inpatient (IN) | payer MEDICARE, BC ==
[2018-10-08] MEDS ORDERED: Dextrose 50% Abboject 50 ML SYRINGE SLOW IVP PRN (07:05)
[2018-10-08] MEDS ORDERED: Sodium Chloride 0.65% Nasal 44 ML BOT EA NARE PRN (07:05)
[2018-10-08] MEDS ORDERED: Acetaminophen 650 MG Suppository PR PRN (07:05)
[2018-10-08] MEDS ORDERED: Labetalol HCl 100 MG/20 ML VIAL SLOW IVP PRN (07:05)
[2018-10-08] MEDS ORDERED: Artificial Tears 18 DROP/0.9 ML EA EYE PRN (07:05)
[2018-10-08] MEDS ORDERED: Dextrose 5% in Water 1,000 ML IV PRN (07:05)
[2018-10-08] MEDS ORDERED: HumaLOG 300 UNITS/3 ML VIAL SC PRN ×2 (07:05)
[2018-10-08] MEDS ORDERED: Bisacodyl 10 MG SUPP PR PRN (07:05)
[2018-10-08] MEDS ORDERED: Eucerin (Mineral Oil/Petrolatum,White) 30 gm Jar TOP PRN (07:05)
[2018-10-08] MEDS ORDERED: Ondansetron PF 4 MG/2 ML Vial IVP PRN (07:05)
[2018-10-08] MEDS ORDERED: Sodium Chloride 0.9% 1,000 ML IV SCH (07:15)
[2018-10-08 07:37] LABS: #Eosinphils 0.1 thou/uL (0.0-0.7); #Lymphocytes 1.1 thou/uL (1.20-3.40); #Monocytes 0.4 thou/uL (0.11-0.59); #Neutrophils 5.9 thou/uL (1.40-6.50); %Basophils 0.4 % (0.0-1.0); %Eosinophils 0.9 % (0.0-10.0); %Lymphocytes 14.9 % (21.0-51.0); %Monocytes 5.3 % (0.0-10.0); %Neutrophils 78.4 % (42.0-75.0); Hemoglobin 11.7 g/dL (14.0-18.0); Mean Corpuscular HGB CONC 32.9 g/dL (32.0-36.0); Mean Corpuscular Hemoglobin 28.2 pg (27.0-31.0); Mean Corpuscular Volume 85.9 fL (78.0-98.0); Mean Platelet Volume 7.3 fL (7.4-10.4); Platelet Count 286 thou/uL (130-400); RBC Distribution Width 12.9 % (11.5-14.5); Red Blood Cell (RBC) Count 4.13 mill/uL (4.70-6.10); White Blood Cell (WBC) Count 7.5 thou/uL (4.8-10.8)
[2018-10-08 08:05] LABS: Lactic Acid 0.9 mmol/L (0.5-2.2)
[2018-10-08 08:10] LABS: Phosphorus 3.6 mg/dL (2.3-4.7)
[2018-10-08 08:12] LABS: ALT (SGPT) 13 U/L (8-55); AST (SGOT) 17 U/L (5-34); Albumin 3.6 g/dL (3.4-4.8); Alkaline Phosphatase 73 U/L (40-150); Anion Gap 13 mmol/L (10-20); BUN (Urea Nitrogen) 19 mg/dL (8.4-25.7); Bilirubin, Total 0.6 mg/dL (0.2-1.2); Calc. Creatinine Clearance 0 mL/min (70-130); Calcium 9.4 mg/dL (7.8-10.44); Carbon Dioxide 27 mmol/L (23-31); Chloride 102 mmol/L (98-107); Estimated GFR-MDRD 49; Globulin 2.8 g/dL (2.4-3.5); Glucose 84 mg/dL (83-110); Magnesium 1.7 mg/dL (1.6-2.6); Potassium 3.5 mmol/L (3.5-5.1); Protein, Total 6.4 g/dL (5.8-8.1); Sodium 138 mmol/L (136-145)
[2018-10-08] MEDS ORDERED: Famotidine/PF 20 mg/2ml Vial ONE (10:58)
[2018-10-08] MEDS ORDERED: Enoxaparin Sodium 40 MG/0.4 ML SYRINGE ONE (10:58)
[2018-10-08] MEDS: Famotidine/PF 20 mg/2ml Vial SLOW IVP SCH ×2 (11:08→21:00)
[2018-10-08] MEDS: Enoxaparin Sodium 40 MG/0.4 ML SYRINGE SC SCH (11:08)
--- NOTE | 2018-10-08 11:23 | HP ---
PRIMARY CARE PHYSICIAN: Dr. Patricia in [place]. REASON FOR ADMISSION: Transfer from [facility] for small bowel obstruction. HISTORY OF PRESENT ILLNESS: An 88-year-old male, who has underlying history of coronary artery disease, chronic systolic heart failure with EF of 20% to 25%, who initially went to [facility] emergency room for evaluation of abdominal pain and abdominal distention. The patient was having diffuse predominantly periumbilical abdominal pain. Pain started a few days ago. As per report, pain started 4 days ago. The patient is very poor historian. He is not able to describe his symptoms in detail and no family member present at bedside. He initially evaluated at [facility], where he had CT abdomen and pelvis, which showed [id number] grade distal small bowel obstruction and extensive diverticulosis. Stomach was moderately distended. At [facility], NG tube was placed and low intermittent suction was started. The patient was transferred to our hospital for higher level of care. Dr. Avila was notified from emergency room and the patient is being admitted to Medical Service. When I saw this patient at that time, the patient was having NG tube with low intermittent suction. He did not have any bowel sound. He was having less abdominal pain. REVIEW OF SYSTEMS: CONSTITUTIONAL: Negative for weight loss or gain, ability to conduct usual activities. SKIN: Negative for rash, itching. EYES: Negative for double vision, pain. ENT/MOUTH: Negative for nose bleeding, neck stiffness, pain, tenderness. CARDIOVASCULAR: Negative for palpitations, dyspnea on exertion, orthopnea. RESPIRATORY: Negative for shortness of breath, wheezing, cough, hemoptysis, fever or night sweats. GASTROINTESTINAL: Negative for poor appetite, abdominal pain, heartburn, nausea, vomiting, constipation, or diarrhea. GENITOURINARY: Negative for urgency, frequency, dysuria, nocturia. MUSCULOSKELETAL: Negative for pain, swelling. NEUROLOGIC/PSYCHIATRIC: Negative for anxiety, depression. ALLERGY/IMMUNOLOGIC: Negative for skin rash, bleeding tendency. Please see my HPI for pertinent positive and negative. All other review of systems reviewed and negative except as mentioned in HPI. Review of systems above-mentioned is not reliable because of patient's level of cognitive status. PAST MEDICAL HISTORY: Chronic systolic heart failure with EF 25% to 30%, coronary artery disease, ischemic cardiomyopathy, diabetes type 2, hypertension, dyslipidemia, history of ischemic CVA, carotid stenosis. PAST SURGICAL HISTORY: Carotid endarterectomy, laparoscopic cholecystectomy, AICD/pacemaker placement. PAST PSYCHIATRIC HISTORY: Reviewed and negative. FAMILY HISTORY: No family history of coronary artery disease, stroke, or cancer. SOCIAL HISTORY: The patient is . Lives in [place]. No history of tobacco, alcohol, or illicit drug abuse. ALLERGIES: FENTANYL AND PENICILLIN. CURRENT HOME MEDICATIONS: 1. Aspirin 81 mg daily. 2. Glipizide 2.5 mg twice daily. 3. Plavix 75 mg daily. 4. Metformin 500 mg daily. 5. Omeprazole 20 mg daily. 6. Lisinopril 20 mg daily. 7. Zocor 40 mg p.o. at bedtime. 8. Lasix 40 mg p.o. b.i.d. 9. Nitroglycerin p.r.n. 10. Hyoscyamine 0.125 mg q.6 hourly p.r.n. 11. Simethicone 125 mg daily. 12. Multivitamin one tablet p.o. daily. EMERGENCY ROOM COURSE: The patient received NG tube with low intermittent suction. In [facility], he received 15 mg Toradol, 4 mg Zofran, 4 mg morphine. After NG tube placed, 550 mL output came out through the NG tube. PHYSICAL EXAMINATION: VITAL SIGNS: Currently, blood pressure 168/78, pulse 61, respiratory rate 17, temperature 98.4, saturation 93% on room air, weight 72.5 kg. GENERAL: The patient is currently alert, awake. Follows command. No obvious acute distress. HEAD: Normocephalic, atraumatic. EYES: Pupils round, reactive to light. Extraocular muscle intact. ENT: Oropharynx within normal limits. Moist mucous membranes. No oral lesion. No pharyngeal erythema. No exudate. NECK: Supple. No JVD. No thyromegaly. No carotid bruit. LUNGS: Clear to auscultation without any rhonchi or rales. CARDIAC: S1, S2, irregular. Systolic murmur noted parasternally. No gallop. No rub. ABDOMEN: Diffusely distended. NG tube in place with suctioning. No bowel sound. No peritoneal sign. No guarding. No rigidity. BACK: Unremarkable. No CVA tenderness. EXTREMITIES: Upper extremities; passive movement of all joints are normal. Lower extremity; no edema, good distal pulsation. SKIN: No skin rash. HEMATOLOGICAL SYSTEM: No lymphadenopathy. PSYCHIATRIC: Normal affect. NEUROLOGIC: Nonfocal examination. The patient moves all four limbs. SIGNIFICANT LABS: CT abdomen and pelvis done at [facility] showing ncyhxtdq-[id number]-grade distal small bowel obstruction, stomach dilated, and extensive diverticulosis. Currently, CBC; WBC 7.5, hemoglobin 11.7, platelet 286. BMP; sodium 138, potassium 3.5, chloride 102, carbon dioxide 27, anion gap 13, BUN 19, creatinine 1.37, glucose 84, calcium 9.4, phosphorus 3.6. Lactic acid 0.9. Magnesium 1.7. LFT; AST 17, ALT 13, alkaline phosphatase 73, albumin 3.6. ASSESSMENT AND PLAN: 1. Small bowel obstruction, nlxcvgch-ty-ftuq-grade distal small bowel obstruction based on imaging as well as clinical picture consistent with small bowel obstruction. General Surgery will be consulted. The patient will be treated conservatively with NG tube with low intermittent suction. He will need small bowel follow-through. If he does not improve with conservative measures, then he may need surgical intervention. His pain will be controlled with pain medication. We will closely monitor in the hospital. He will be given gentle IV fluid. We will continue Pepcid 20 mg IV b.i.d. Further decision and treatment plan will defer to General Surgery. 2. Ischemic cardiomyopathy with chronic systolic congestive heart failure stage C. Currently, the patient is euvolemic. Because the patient is n.p.o., we will hold on oral medication for now. Once the patient is able to take p.o. medication, then we will resume his selected home medication depending upon his hemodynamics. 3. Coronary artery disease. As mentioned in problem #2, because of the patient's n.p.o. status, we will hold on all his medication, but upon stabilization and once p.o. intake resumed, at that time, we will resume aspirin, Plavix, beta-marly, and DOTTY inhibitor. 4. Diabetes type 2. We will hold on metformin therapy. We will continue with insulin as per sliding scale protocol, watch for hypoglycemia. 5. Hypertension. We will use p.r.n. basis hydralazine and labetalol. Currently, the patient is n.p.o. and that is why we will hold on antihypertensive medication. 6. Benign enlargement of prostate. We will continue Flomax 0.4 mg p.o. daily when the patient is able to take p.o. intake. 7. Gastroesophageal reflux disease. We will continue Pepcid 20 mg IV b.i.d. 8. Chronic kidney disease stage 3. We will monitor renal function. 9. Deep venous thrombosis prophylaxis, Lovenox 40 mg subcutaneous daily. 10. Gastrointestinal prophylaxis, Pepcid 20 mg IV b.i.d. 11. Code status. At this point, the patient will be kept as a full code. The patient does not have any family member to discuss and the patient cannot make his own decision. DISPOSITION PLAN: Based on clinical course, we are expecting the patient's stay in hospital more than 2 midnights. Plan of care discussed with the patient in detail. Job ID: [id number]
[2018-10-08 14:45] VITALS: BMI 22.8
[2018-10-08] MEDS: hydrALAZINE 20 MG/ML VIAL SLOW IVP PRN (15:22)
--- NOTE | 2018-10-08 17:48 | CON ---
DATE OF CONSULTATION: REASON FOR CONSULTATION: Small-bowel obstruction. HISTORY: Mr. Sebastian is an 88-year-old man known to me from previous admissions. He has had issues for several years with intermittent abdominal pain of unclear etiology. His coin dealer has been working with him on this and he was found to have cholelithiasis and cholecystitis as well as choledocholithiasis. The patient does have a history of pancreatitis in the past, which is likely due to his gallstones. I performed a laparoscopic cholecystectomy on him in April 2017, at which time he was found to have common bile duct stones and underwent a postoperative ERCP. However, he has continued to have intermittent diffuse abdominal pain radiating across his entire abdomen and into his back and was crampy in nature. It was increasing in severity, so he came to the [facility], where a CT showed evidence of small-bowel obstruction. He had 1 episode of nausea and vomiting. He had an NG tube placed in [facility] and has felt much better since then. He is no longer having any abdominal pain or nausea, and he states that he has passed some flatus. He had a normal bowel movement yesterday morning. When I saw him down in the ER, he was comfortable, was no longer having any pain or nausea. PAST MEDICAL HISTORY: CHF with ejection fraction of 25% to 30%, coronary artery disease with ischemic cardiomyopathy, diabetes, hypertension, hyperlipidemia, carotid stenosis, and history of stroke. PAST SURGICAL HISTORY: Pacemaker, AICD, laparoscopic cholecystectomy with ERCP, and carotid endarterectomy. ALLERGIES: HE REPORTS AN ALLERGY TO PENICILLIN AND FENTANYL. OUTPATIENT MEDICATIONS: Include: 1. Aspirin. 2. Glipizide. 3. Plavix. 4. Metformin. 5. Omeprazole. 6. Lisinopril. 7. Zocor. 8. Lasix. 9. Nitroglycerin. 10. Hyoscyamine. 11. Simethicone. 12. Multivitamin. PHYSICAL EXAMINATION: VITAL SIGNS: The patient is afebrile with low normal heart rate and moderate hypertension. GENERAL: Reveals an elderly man, in no acute distress with an NG tube in place with light green output. HEENT: Unremarkable. NECK: Supple without lymphadenopathy or thyroid nodules. ABDOMEN: Soft, nontender, and nondistended. He does have hypoactive bowel sounds. EXTREMITIES: Warm and well perfused without significant edema. NEUROLOGIC: No focal deficits. PSYCHIATRIC: Alert, oriented, and appropriate. LABORATORY DATA: White count is creatinine is 1.37, which is about at his baseline. Other electrolytes and LFTs are normal. Lactate is normal. CT images were unable to be reviewed since they were done in [facility], but the report is that it showed moderate to high-grade distal small-bowel obstruction. ASSESSMENT: Small-bowel obstruction, asymptomatic since placement of NG tube. I have recommended a course of nonoperative conservative management with NG decompression and n.p.o. status and the patient is in agreement with this. If his condition worsens and surgery may be necessary, but hopefully this can be avoided in this frail elderly man with multiple medical problems. Job ID: [id number]
[2018-10-08] MEDS: Dextrose 5 % And 0.9 % NaCl 1,000 ML IV SCH (17:55)
[2018-10-08 19:17] LABS: Bilirubin Small (Negative); Blood, Urine Negative (Negative); Clarity CLEAR (Clear); Glucose, Urine (Dipstick) Negative (Negative); Leukocyte Negative (Negative); Nitrite Negative (Negative); Protein, Urine (Dipstick) 30 mg/dL (Neg-Trace); pH, Urine 6.5 (5.0-9.0)
[2018-10-08 19:19] LABS: Bacteria/HPF None Seen HPF (None Seen); Hyaline Casts/LPF 0-3 HYALINE CAST LPF (0-3 Hyaline); Squamous Epithelial 0-3 HPF (0-3); WBC/HPF 0-3 HPF (0-3)
[2018-10-09 05:36] LABS: #Basophils 0.1 thou/uL (0.0-0.2); #Eosinphils 0.1 thou/uL (0.0-0.7); #Lymphocytes 1.2 thou/uL (1.20-3.40); #Monocytes 0.4 thou/uL (0.11-0.59); #Neutrophils 4.5 thou/uL (1.40-6.50); %Basophils 0.8 % (0.0-1.0); %Eosinophils 2.2 % (0.0-10.0); %Lymphocytes 18.6 % (21.0-51.0); %Monocytes 6.6 % (0.0-10.0); %Neutrophils 71.9 % (42.0-75.0); Hemoglobin 11.3 g/dL (14.0-18.0); Mean Corpuscular HGB CONC 32.5 g/dL (32.0-36.0); Mean Corpuscular Hemoglobin 28.2 pg (27.0-31.0); Mean Corpuscular Volume 86.7 fL (78.0-98.0); Mean Platelet Volume 7.2 fL (7.4-10.4); Platelet Count 256 thou/uL (130-400); Red Blood Cell (RBC) Count 4.01 mill/uL (4.70-6.10); White Blood Cell (WBC) Count 6.2 thou/uL (4.8-10.8)
[2018-10-09 05:57] LABS: Anion Gap 10 mmol/L (10-20); BUN (Urea Nitrogen) 16 mg/dL (8.4-25.7); Calc. Creatinine Clearance 42 mL/min (70-130); Calcium 8.8 mg/dL (7.8-10.44); Carbon Dioxide 25 mmol/L (23-31); Chloride 110 mmol/L (98-107); Estimated GFR-MDRD 58; Glucose 114 mg/dL (83-110); Potassium 3.4 mmol/L (3.5-5.1); Sodium 142 mmol/L (136-145)
[2018-10-09] MEDS: Dextrose 5 % And 0.9 % NaCl 1,000 ML IV SCH ×2 (05:58→21:04)
[2018-10-09] MEDS: Enoxaparin Sodium 40 MG/0.4 ML SYRINGE SC SCH (08:06)
[2018-10-09] MEDS: Famotidine/PF 20 mg/2ml Vial SLOW IVP SCH ×2 (08:06→21:04)
[2018-10-09] MEDS: hydrALAZINE 20 MG/ML VIAL SLOW IVP PRN (08:08)
--- NOTE | 2018-10-09 11:45 | PDOC.PN ---
- Subjective Encounter Start Date: 10/09/18 Encounter Start Time: 07:50 -: old records requested/rev Patient seen and examined. No new complaints. No overnight events - Objective Resuscitation Status - Order Detail: 10/08/18 07:05 Resuscitation Status Routine Resuscitation Status: FULL: Full Resuscitation MAR Reviewed: Yes Vital Signs & Weight: Vital Signs (12 hours) Temp Pulse Resp BP BP Pulse Ox 10/09/18 07:15 97.5 F L 50 L 15 190/80 H 99 10/09/18 04:15 98.7 F 48 L 12 170/72 H 95 10/08/18 23:50 97.9 F 54 L 16 160/70 H 95 Weight Weight 155 lb I&O: 10/08/18 10/09/18 10/10/18 06:59 06:59 06:59 Intake Total 900 Output Total 600 Balance 300 Result Diagrams: 10/09/18 05:27 10/09/18 05:27 Additional Labs: Accuchecks 10/09/18 10/09/18 10/08/18 10:38 05:53 20:07 POC Glucose 113 H 115 H 95 10/08/18 10/08/18 16:36 15:16 POC Glucose 75 81 EKG Reviewed by me: Yes (pvc noted) Phys Exam - Physical Examination Constitutional: NAD HEENT: PERRLA, moist MMs, sclera anicteric NG tube with LIS Neck: no JVD, supple Respiratory: no wheezing, no rales, no rhonchi Cardiovascular: no rub, irregular SM+ Gastrointestinal: soft, non-tender, no distention Musculoskeletal: no edema, pulses present Neurological: non-focal, normal sensation Lymphatic: no nodes Psychiatric: normal affect Skin: no rash, normal turgor Dx/Plan (1) SBO (small bowel obstruction) Code(s): K56.609 - UNSP INTESTNL OBST, UNSP TO PARTIAL VERSUS COMPLETE OBST Status: Acute (2) Anemia, normocytic normochromic Code(s): D64.9 - ANEMIA, UNSPECIFIED Status: Chronic (3) Atrial fibrillation and flutter Code(s): I48.91 - UNSPECIFIED ATRIAL FIBRILLATION; I48.92 - UNSPECIFIED ATRIAL FLUTTER Status: Chronic (4) CAD (coronary artery disease) Code(s): I25.10 - ATHSCL HEART DISEASE OF [place] CORONARY ARTERY W/O ANG PCTRS Status: Chronic Qualifiers: (5) CKD (chronic kidney disease) stage 3, GFR 30-59 ml/min Code(s): N18.3 - CHRONIC KIDNEY DISEASE, STAGE 3 (MODERATE) Status: Chronic (6) Chronic combined systolic (congestive) and diastolic (congestive) heart failure Code(s): I50.42 - CHRONIC COMBINED SYSTOLIC AND DIASTOLIC HRT FAIL Status: Chronic Comment: stage C (7) Diabetes type 2, controlled Code(s): E11.9 - TYPE 2 DIABETES MELLITUS WITHOUT COMPLICATIONS Status: Chronic Qualifiers: (8) Dyslipidemia Code(s): E78.5 - HYPERLIPIDEMIA, UNSPECIFIED Status: Chronic (9) Hypertension Code(s): I10 - ESSENTIAL (PRIMARY) HYPERTENSION Status: Chronic Qualifiers: - Plan cont current plan of care * continue conservative treatment for SBO * today will do small bowel xray * continue IVF DNS at 75 ml per hour * if SBO resolves, then will try advancing diet and start his home meds * add nitro patch * medication reviewed as below * symptomatic treatment. Review of Systems - Review of Systems ENT: negative: Ear Pain, Ear Discharge, Nose Pain, Nose Discharge, Nose Congestion, Mouth Pain, Mouth Swelling, Throat Pain, Throat Swelling, Other Respiratory: negative: Cough, Dry, Shortness of Breath, Hemoptysis, SOB with Excertion, Pleuritic Pain, Sputum, Wheezing Cardiovascular: negative: chest pain, palpitations, orthopnea, paroxysmal nocturnal dyspnea, edema, light headedness, other Gastrointestinal: negative: Nausea, Vomiting, Abdominal Pain, Diarrhea, Constipation, Melena, Hematochezia, Other Genitourinary: negative: Dysuria, Frequency, Incontinence, Hematuria, Retention , Other Musculoskeletal: negative: Neck Pain, Shoulder Pain, Arm Pain, Back Pain, Hand Pain, Leg Pain, Foot Pain, Other Other: not reliable with pt due to his cognitive status - Medications/Allergies Allergies/Adverse Reactions: Allergies Allergy/AdvReac Type Severity Reaction Status Date / Time fentanyl Allergy Verified 02/12/18 18:01 Penicillins Allergy Verified 02/12/18 18:01 Medications: Current Medications Acetaminophen (Tylenol) 650 mg NV Q4H PRN PRN Reason: Headache/Fever/Mild Pain (1-3) Albuterol/Ipratropium (Duoneb) 3 ml NEB [id number] PRN PRN Reason: SOB &/or Wheezing Artificial Tears (Tears Naturale) 2 drop EA EYE PRN PRN PRN Reason: Dry Eyes Bisacodyl (Dulcolax) 10 mg NV DAILYPRN PRN PRN Reason: Constipation Dextrose/Water (Dextrose 50%) 25 gm SLOW IVP PRN PRN PRN Reason: Hypoglycemia Enoxaparin Sodium (Lovenox) 40 mg SC 0900 [facility] Last Admin: 10/09/18 08:06 Dose: 40 mg Famotidine (Pepcid) 20 mg SLOW IVP Q12HR [facility] Last Admin: 10/09/18 08:06 Dose: 20 mg Glucagon (Glucagon) 1 mg IM PRN PRN PRN Reason: Hypoglycemia Hydralazine HCl (Apresoline) 10 mg SLOW IVP Q4H PRN PRN Reason: SBP > 180 and HR < 70 Last Admin: 10/09/18 08:08 Dose: 10 mg Dextrose/Water (D5w) 1,000 mls @ 0 mls/hr IV .Q0M PRN PRN Reason: Hypoglycemia Dextrose/Sodium Chloride (D5 0.9% Ns) 1,000 mls @ 75 mls/hr IV .[id number] [facility] Last Admin: 10/09/18 05:58 Dose: 1,000 mls Insulin Human Lispro (Humalog) 0 units SC .MODERATE SLIDING SC PRN PRN Reason: Moderate Correctional Scale Insulin Human Lispro (Humalog) 0 units SC .BEDTIME SLIDING SC PRN PRN Reason: Bedtime Correctional Scale Labetalol HCl (Normodyne) 20 mg SLOW IVP Q4H PRN PRN Reason: SBP > 180 and HR >/= 70 Mineral Oil/White Petrolatum (Eucerin Cream) 0 gm TOP BIDPRN PRN PRN Reason: Dry Skin Nitroglycerin (Nitro-Bid 2% Ointment) 0.5 inch TOP Q8HR [facility] Ondansetron HCl (Zofran) 4 mg IVP Q6H PRN PRN Reason: Nausea/Vomiting Last Admin: 10/09/18 11:19 Dose: 4 mg Sodium Chloride ([place] Nasal [place] 0.65%) 0 ml EA NARE QIDPRN PRN PRN Reason: Nasal Congestion
--- NOTE | 2018-10-09 13:26 | RAD ---
SMALL BOWEL SERIES: DATE: 10/09/2018. HISTORY: An 88-year-old male with small bowel obstruction. FINDINGS: Injected Gastrografin into NG Tube progresses rapidly through nondilated small bowel loops, and reach es the colon by 45 minutes. There is a superiorly directed moderately large diverticulum arising fro m the 3rd stage of the duodenum. IMPRESSION: 1. No small bowel obstruction. 2. Duodenal diverticulum. POS: DAVID
[2018-10-09] MEDS: Nitroglycerin 2% Ointment 1 INCH/1 GM Packet TOP SCH ×2 (15:31→21:04)
--- NOTE | 2018-10-09 22:31 | PDOC.GSPN ---
Surgery Progress Note: Subj - Subjective Narrative: Patient feels great. He denies any abdominal pain or nausea. Small bowel follow through did not show any evidence of persistent obstruction and his NG tube was removed and he was started on clear liquids which she has tolerated well. Abdomen is soft nontender and nondistended. Assessment/plan: Small bowel obstruction, clinically resolved. I have written for full liquids tomorrow. If he tolerates this he can go home on a full liquid diet to advance to soft and then regular over the next week. Surgery Progress Note: Obj - Vital signs Vital signs: Vital Signs - Most Recent Temp Pulse Resp BP Pulse Ox 98.1 F 65 16 178/86 H 92 L 10/09/18 15:30 10/09/18 15:30 10/09/18 15:30 10/09/18 15:30 10/09/18 15:30 Surgery Progress Note: Results - Labs Result Diagrams: 10/09/18 05:27 10/09/18 05:27 Lab results: Laboratory Results - last 24 hr 10/09/18 10/09/18 10/09/18 10:38 16:54 20:39 POC Glucose 113 H 136 H 255 H
[2018-10-10] MEDS: Nitroglycerin 2% Ointment 1 INCH/1 GM Packet TOP SCH (04:59)
[2018-10-10] MEDS ORDERED: Ondansetron ODT 4 MG TAB PO PRN (07:53)
[2018-10-10] MEDS ORDERED: Diabetic Tussin 200 MG/10 ML UDCUP PO PRN (07:53)
[2018-10-10] MEDS ORDERED: Cepastat Lozenges 1 LOZ PO PRN (07:53)
[2018-10-10] MEDS ORDERED: Senokot S 8.6-50 MG TAB PO PRN (07:53)
[2018-10-10] MEDS ORDERED: Acetaminophen 500 MG TAB PO PRN (07:53)
[2018-10-10] MEDS ORDERED: Acetaminophen 325 MG TAB PO PRN (07:57)
[2018-10-10] MEDS: Enoxaparin Sodium 40 MG/0.4 ML SYRINGE SC SCH (08:31)
[2018-10-10] MEDS ORDERED: Clopidogrel Bisulfate 75 MG TAB PO SCH (09:00)
[2018-10-10] MEDS ORDERED: Famotidine 20 MG TAB PO SCH (09:00)
[2018-10-10] MEDS ORDERED: Lisinopril 20 MG TAB PO SCH (09:00)
[2018-10-10] MEDS ORDERED: Furosemide 40 MG TAB PO SCH (09:00)
[2018-10-10] MEDS ORDERED: Aspirin 81 mg Enteric Coated Tablet PO SCH (09:00)
--- NOTE | 2018-10-10 11:11 | DIS ---
DATE OF ADMISSION: 10/08/2018 DATE OF DISCHARGE: 10/10/2018 PRIMARY CARE PHYSICIAN: Dr. Myrtle Landa. DISCHARGE DISPOSITION: Home. PRIMARY DISCHARGE DIAGNOSIS: Small-bowel obstruction, resolved. SECONDARY DISCHARGE DIAGNOSES: 1. Hypertension. 2. Dyslipidemia. 3. Diabetes, type 2. 4. Chronic kidney disease, stage 3. 5. Combined chronic systolic and diastolic heart failure, stage C. 6. Coronary artery disease. 7. Chronic atrial flutter and fibrillation. 8. Normocytic normochromic anemia. PRIMARY PROCEDURE/OPERATION: None. RADIOLOGICAL INVESTIGATION: Small-bowel x-ray negative for any obstruction. Initial CT of brain at [facility] showed small-bowel obstruction. SIGNIFICANT LABORATORY DATA: WBC 6.2, hemoglobin 11.3, platelet 256. Sodium 142, potassium 3.4, BUN 16, creatinine 1.19, and calcium 8.8. DISCHARGE MEDICATIONS: 1. Nitroglycerin 0.4 mg sublingual p.r.n. 2. Aspirin 81 mg daily. 3. Plavix 75 mg daily. 4. Glucotrol 2.5 mg p.o. b.i.d. 5. Levsin 0.125 mg p.o. q.6 hourly p.r.n. 6. Lisinopril 20 mg daily. 7. Metformin 500 mg daily. 8. Multivitamin 1 tablet daily. 9. Omeprazole 20 mg daily. 10. Gas-X 1 or 2 tablets p.r.n. basis. 11. Zocor 40 mg p.o. at bedtime. 12. Lasix 40 mg p.o. b.i.d. CONTRAINDICATION: The patient is not on beta-marly therapy because of bradycardia and that is why the patient is not tolerating this medication and contraindicated. CODE STATUS: Full code. INPATIENT CHILD WELFARE ASSISTANT: Dr. Avila was following while in hospital. ALLERGIES: FENTANYL AND PENICILLIN. DISCHARGE PLAN: Posthospital, the patient will follow up with primary care physician. HOSPITAL COURSE: An 88-year-old male, who was initially evaluated at [facility]. He was evaluated for abdominal pain. He was diagnosed with small-bowel obstruction based on CT abdomen and pelvis. He was transferred to our hospital. He was treated with conservatively with NG tube with low intermittent suction, IV fluid, and n.p.o. status. Within 24 to 48 hours, the patient had improvement. We did small-bowel x-ray, which showed resolution of small-bowel obstruction. After that, we advanced his diet from liquid to full liquid diet. Necessary patient education about dietary was given. The patient will resume all his previous medication upon discharge. During this admission, General Surgery was following and they recommended conservative therapy. This patient has significant clinical improvement with conservative therapy. The patient is seen and examined at bedside today. All review of systems reviewed with him and negative. All his vitals are stable and his examination is normal. The patient is medically stable for discharge today. Job ID: [id number]
[2018-10-10] MEDS: hydrALAZINE 20 MG/ML VIAL SLOW IVP PRN (11:40)
[2018-10-10 11:54] VITALS: TEMP 97.8
[2018-10-10 12:56] VITALS: BP 150/67
[2018-10-10] MEDS ORDERED: Atorvastatin Calcium 20 MG TAB PO SCH (21:00)
== END 2018-10-10 14:10 | disposition home or self-care (01) | DRG 389 ==
LOC: ERS 04:06 → ERHOLD 06:10 → 2NO 14:56
PROVIDERS: ADMIT Internal Medicine; ATTEND Internal Medicine
DX: K56.609 Unspecified intestinal obstruction, unspecified as to partial versus complete obstruction (principal); I13.0 Hypertensive heart and chronic kidney disease with heart failure and stage 1 through stage 4 chronic kidney disease, or unspecified chronic kidney disease; I50.42 Chronic combined systolic (congestive) and diastolic (congestive) heart failure; I25.10 Atherosclerotic heart disease of native coronary artery without angina pectoris; I25.5 Ischemic cardiomyopathy; E78.5 Hyperlipidemia, unspecified; N40.0 Benign prostatic hyperplasia without lower urinary tract symptoms; K21.9 Gastro-esophageal reflux disease without esophagitis; N18.3 Chronic kidney disease, stage 3 (moderate); E11.22 Type 2 diabetes mellitus with diabetic chronic kidney disease; I48.2 Chronic atrial fibrillation; D64.9 Anemia, unspecified; Z86.73 Personal history of transient ischemic attack (TIA), and cerebral infarction without residual deficits; Z90.49 Acquired absence of other specified parts of digestive tract; Z95.0 Presence of cardiac pacemaker; Z98.890 Other specified postprocedural states; Z88.0 Allergy status to penicillin; Z88.8 Allergy status to other drugs, medicaments and biological substances; Z79.82 Long term (current) use of aspirin; Z79.899 Other long term (current) drug therapy
CPT/HCPCS: 36415; 36416; 74250; 80048; 80053; 81001; 83605; 83735; 84100; 85025; J0360; J1650; J2405; S0028

== ENCOUNTER 2018-10-12 11:25 | Emergency (ER) | payer MEDICARE, BC ==
[2018-10-12 12:55] LABS: Bilirubin Negative (Negative); Blood, Urine Negative (Negative); Clarity CLEAR (Clear); Glucose, Urine (Dipstick) Negative (Negative); Leukocyte Negative (Negative); Nitrite Negative (Negative); Protein, Urine (Dipstick) Trace mg/dL (Neg-Trace); pH, Urine 7.5 (5.0-9.0)
[2018-10-12 13:03] LABS: Specific Gravity, Urine Greater than 1.060 (1.002-1.036)
[2018-10-12] MEDS ORDERED: Mag-Al 1200 mg/1200 mg/30 ML UDCUP ONE (13:47)
[2018-10-12] MEDS ORDERED: Lidocaine Viscous Sol 2% 15 ml UD Cup ONE (13:47)
== END 2018-10-12 14:02 | disposition home or self-care (01) ==
LOC: ERS 11:25
DX: R06.02 Shortness of breath (principal); R10.13 Epigastric pain; R11.0 Nausea; I25.10 Atherosclerotic heart disease of native coronary artery without angina pectoris; E11.9 Type 2 diabetes mellitus without complications; E78.5 Hyperlipidemia, unspecified; I11.0 Hypertensive heart disease with heart failure; I50.9 Heart failure, unspecified; Z86.73 Personal history of transient ischemic attack (TIA), and cerebral infarction without residual deficits; F41.9 Anxiety disorder, unspecified; F17.210 Nicotine dependence, cigarettes, uncomplicated; Z79.82 Long term (current) use of aspirin; Z79.899 Other long term (current) drug therapy; Z79.84 Long term (current) use of oral hypoglycemic drugs
CPT/HCPCS: 36415; 81003; 84484; 99285

== ENCOUNTER 2018-12-15 07:47 | Outpatient (CLI) | payer MEDICARE, BC ==
--- NOTE | 2018-12-15 08:21 | RAD ---
FExam: Chest 2 view HISTORY:Unintentional weight loss Comparison: 02/15/2018 FINDINGS: Lungs: Interstitial prominence bilaterally Cardiac silhouette:Enlarged cardiac silhouette. There is a single-lead left subclavian approach AICD Pulmonary vessels: Mildly prominent Pleural Spaces: Clear Pneumothorax: None Osseous abnormalities: None IMPRESSION: Mild CHF
--- NOTE | 2018-12-15 09:33 | CT ---
FEXAM:CT angiogram of abdomen performed with and without contrast enhancement with 3-D reconstruction s: HISTORY: Periumbilical pain weight loss mesenteric ischemia. COMPARISON: 10/08/2018 study FINDINGS:The lung bases show mild chronic change without focal infiltrate. The liver spleen and pancreas regions are unremarkable. There is a hypodensity within the left lobe o f the liver stable and appears to represent a cyst. Right and left adrenal glands are normal in size and appearance. Right and left kidneys are normal in size hypodensities involving the upper pole and pelvis region of the left kidney are compatible with cysts, stable. There is no significant periaortic or mesenteric adenopathy. Some mild dilatation of some of the small bowel loops, this is less pronounced on the 10/08/2018 study . In addition there is swirling of the mesentery with a group of small bowel loops in an abnormal pos ition within the right mid to upper abdomen. Angiographic portion of the study yielded a good examination. There is prominent atherosclerotic plaq ue at the origin of the superior mesenteric artery with an area of mild to moderate stenosis, there i s mild narrowing of the origin of the celiac artery. There is moderate atherosclerotic plaque of the origin of single renal arteries bilaterally there is an area of moderately severe stenosis of the rig ht renal artery just distal to the area of plaque formation. There is a second smaller right renal ar radha feeding the lower pole. The inferior mesenteric artery is tiny. IMPRESSION: 1. Mildly dilated small bowel loops in the midabdomen associated with a swirling pattern of the mesen teric vessels with abnormal placement of some of the small bowel within the right abdomen this is com patible with either a paraduodenal hernia or possibly acquired related to the previous cholecystectom y. In reviewing previous examinations there is been intermittent small bowel obstruction, this director internal communications al hernia either congenital or acquired could be the underlying etiology for patient's abdominal pain as it appears to be associated with a partial small bowel obstruction. 2. 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 Mild narrowing of the c eliac artery seen. 3. Moderately severe stenosis of the right renal artery just distal to the prominent atherosclerotic plaque.
== END 2018-12-15 07:48 | disposition home or self-care (01) ==
LOC: BICCT 07:47
PROVIDERS: ATTEND Internal Medicine Gastroenterology
DX: R10.33 Periumbilical pain (principal); R14.2 Eructation; R63.4 Abnormal weight loss; K55.1 Chronic vascular disorders of intestine; I77.4 Celiac artery compression syndrome; I70.1 Atherosclerosis of renal artery; K56.699 Other intestinal obstruction unspecified as to partial versus complete obstruction
CPT/HCPCS: 71046; 74175; 82565

== ENCOUNTER 2018-12-20 19:28 | Inpatient (IN) | payer MEDICARE, BC ==
[~2018-12-20 19:28] MED LIST: ISOVUE-370 76%-LOCM 1 ML ONE
[2018-12-20] MEDS ORDERED: Ondansetron PF 4 MG/2 ML Vial ONE (21:08)
[2018-12-20] MEDS ORDERED: Morphine 4 MG/ML VIAL ONE (21:08)
--- NOTE | 2018-12-20 22:11 | CT ---
CT ABDOMEN AND PELVIS WITH IV CONTRAST: 12/20/18 HISTORY: Abdominal pain, elevated lactate. FINDINGS: Comparison made with exam of 12/15/18. The lung bases are unremarkable. The cyst in the left lobe of the liver is again seen. The spleen, pa ncreas, adrenal glands, and right kidney are normal. Left renal cysts are again seen. No free air, free fluid or lymphadenopathy is seen in the abdomen or pelvis. The prostate is enlarged . There is colonic diverticulosis without diverticulitis. There is fecal material in the colon. There is air and fluid in dilated loops of small bowel with transition zone in the mid-distal ileum. No pn eumatosis is seen. There are vascular calcifications without evidence of aneurysmal dilatation of the abdominal aorta. T here are degenerative changes in the spine. IMPRESSION: 1. Findings are suspicious for small bowel obstruction. 2. Severe atherosclerotic vascular disease. Possibility of ischemic bowel cannot be completely e xcluded. 3. Hepatic and left renal cysts. 4. Colonic diverticulosis. 5. Prostatic enlargement. POS: DAVID
[2018-12-21] MEDS ORDERED: Ondansetron PF 4 MG/2 ML Vial IVP PRN ×2 (01:39→22:42)
[2018-12-21] MEDS ORDERED: Morphine 4 MG/ML VIAL SLOW IVP PRN (01:39)
[2018-12-21] MEDS ORDERED: Sodium Chloride 0.9% 1,000 ML IV SCH ×2 (01:39→12:45)
[2018-12-21] MEDS ORDERED: Acetaminophen 325 MG TAB PO PRN (01:39)
[2018-12-21] MEDS ORDERED: Ondansetron ODT 4 MG TAB SL PRN (01:39)
[2018-12-21] MEDS ORDERED: Morphine 4 MG/ML VIAL ONE ×4 (02:07→22:45)
[2018-12-21 06:28] LABS: Lactic Acid 0.8 mmol/L (0.5-2.2)
--- NOTE | 2018-12-21 07:33 | RAD ---
XR Abdomen 1 View/KUB History: [Chest pain] Comparison: None. Findings: Enteric tube appears be in place which is coiled within the mid esophagus with the tip exte nding towards the head. Right upper quadrant surgical clips. No basilar pneumothorax. Impression: Enteric tube coiled within the mid esophagus. Recommend retraction and re-advancement.
[2018-12-21] MEDS ORDERED: hydrALAZINE 20 MG/ML VIAL SLOW IVP PRN (09:04)
[2018-12-21] MEDS ORDERED: cloNIDine 0.1 MG TAB PO PRN (09:04)
[2018-12-21] MEDS ORDERED: Lidocaine Viscous Sol 2% 15 ml UD Cup ONE (09:55)
[2018-12-21] MEDS ORDERED: Benzocaine 20% Spray 60 ML CAN ONE (09:55)
--- NOTE | 2018-12-21 11:09 | RAD ---
Exam: Abdomen one view HISTORY: NG tube placement COMPARISON: 12/21/2018 at 12:04 AM FINDINGS: Redemonstration of a left-sided single-lead defibrillator. Nasogastric tube appears to term inate at the level of the GE junction. Persistent cardiomegaly and chronic changes of the lung parenchyma. Multiple air-filled loops of bowel are noted. The possibility of small bowel distention cannot be exc luded. IMPRESSION: Nasogastric tube as above. Advancement of the nasogastric tube is recommended. Results of study discussed with Nicholas patient's nurse, 12/21/2018 at 11:08 AM Code CR Transcribed Date/Time: 12/21/2018 11:11 AM
--- NOTE | 2018-12-21 12:09 | RAD ---
KUB: DATE: 12/21/2018. COMPARISON: Prior study on same day. HISTORY: Nasogastric tube advancement. FINDINGS: This study is performed at 11:30 a.m. 12/21/2018 and compared to the prior study performed earlier on 12/21/2018. The nasogastric tube has been advanced, now curling over the gastric air bubble within th e left upper quadrant. There is diffuse gaseous distention of bowel, incompletely assessed on this e xam. Single-lead AICD noted. Cardiac silhouette is prominent. IMPRESSION: Nasogastric tube curls over the left upper quadrant POS: [facility]
[2018-12-21] MEDS ORDERED: Morphine 2 MG/ML SYRINGE ONE (12:29)
[2018-12-21] MEDS ORDERED: Dextrose 5% in Water 1,000 ML IV PRN (12:45)
[2018-12-21] MEDS ORDERED: Dextrose 50% Abboject 50 ML SYRINGE SLOW IVP PRN (12:45)
[2018-12-21] MEDS ORDERED: HumaLOG 300 UNITS/3 ML VIAL SC PRN ×2 (12:45)
[2018-12-21 13:12] LABS: #Eosinphils 0.1 thou/uL (0.0-0.7); #Lymphocytes 1.4 thou/uL (1.20-3.40); #Monocytes 0.4 thou/uL (0.11-0.59); #Neutrophils 5.1 thou/uL (1.40-6.50); %Basophils 0.6 % (0.0-1.0); %Lymphocytes 19.9 % (21.0-51.0); %Monocytes 5.6 % (0.0-10.0); %Neutrophils 72.8 % (42.0-75.0); Hemoglobin 11.4 g/dL (14.0-18.0); Mean Corpuscular HGB CONC 32.8 g/dL (32.0-36.0); Mean Corpuscular Hemoglobin 27.6 pg (27.0-31.0); Mean Corpuscular Volume 83.9 fL (78.0-98.0); Mean Platelet Volume 7.1 fL (7.4-10.4); Platelet Count 268 thou/uL (130-400); RBC Distribution Width 14.2 % (11.5-14.5); Red Blood Cell (RBC) Count 4.14 mill/uL (4.70-6.10); White Blood Cell (WBC) Count 6.9 thou/uL (4.8-10.8)
[2018-12-21 13:23] LABS: Lactic Acid 0.8 mmol/L (0.5-2.2)
[2018-12-21] MEDS: Dextrose 5 %-0.45 % NaCl 1,000 ML IV SCH (13:31)
[2018-12-21 13:33] LABS: ALT (SGPT) 10 U/L (8-55); AST (SGOT) 18 U/L (5-34); Albumin 3.5 g/dL (3.4-4.8); Alkaline Phosphatase 68 U/L (40-150); Anion Gap 13 mmol/L (10-20); BUN (Urea Nitrogen) 20 mg/dL (8.4-25.7); Bilirubin, Total 0.6 mg/dL (0.2-1.2); Calc. Creatinine Clearance 0 mL/min (70-130); Calcium 8.9 mg/dL (7.8-10.44); Carbon Dioxide 27 mmol/L (23-31); Chloride 106 mmol/L (98-107); Estimated GFR-MDRD 48; Globulin 2.7 g/dL (2.4-3.5); Glucose 96 mg/dL (83-110); Potassium 3.8 mmol/L (3.5-5.1); Protein, Total 6.2 g/dL (5.8-8.1); Sodium 142 mmol/L (136-145)
--- NOTE | 2018-12-21 14:49 | HP ---
CHIEF COMPLAINT: Abdominal pain. HISTORY OF PRESENT ILLNESS: Mr. Sebastian is a very pleasant 88-year-old man, who presented to the emergency room yesterday after experiencing severe abdominal pain. The patient has had chronic issues with abdominal pain requiring multiple admissions and previous surgeries. The patient states he has undergone a cholecystectomy in the past with no improvement in his abdominal pain. He was last admitted in late September 2018 again with abdominal pain and treated for small-bowel obstruction. The patient states the pain became severe again yesterday, causing him to seek medical attention. He reports having generalized abdominal pain, which he describes as a cramping that is severe, 10/10 in severity. He was initially seen in [place] and at that time, had been complaining of pain radiating through to his back. He underwent a KUB. Subsequently, the patient was transferred here due to concern for ischemic bowel after undergoing a KUB. The KUB had demonstrated multiple air-filled loops of bowel. Possibility of small bowel distention could not be excluded. An NG tube was seen in place at that time. A repeat abdominal x-ray done on arrival here demonstrated diffuse gaseous distention of the bowel incompletely assessed on examination. He underwent further imaging with a CT of the abdomen and pelvis, which demonstrated findings suspicious for small-bowel obstruction, severe atherosclerotic vascular disease with possibility of ischemic bowel, not able to be completely excluded. Also, noted were hepatic and left renal cysts, colonic diverticulosis, and prostatic enlargement. The patient was previously told he had a twisted bowel and was awaiting another surgery; however, first was to undergo surgical clearance by his choral teacher, Dr. Brewster. At present, the patient is not in any pain. He states it is intermittent and morphine seems to be working well to control his pain, lasting approximately 2 to 4 hours. Currently, he has 1/10 pain. The NG tube is in place and it seems he is having some, however, small output. REVIEW OF SYSTEMS: The patient denies having any chest pain or shortness of breath. Has not had any fevers, chills, or sweats. Reports moving his bowels very well up until recently when he stopped taking his MiraLAX 2 days ago in preparation for an upcoming appointment. He denies having any headaches or dizziness. No nausea or vomiting at present. His abdominal pain is currently under control. Denies having any urinary symptoms. No lower leg swelling or edema. Denies any weakness. Normally, he is fully independent and able to mobilize without difficulties. All other review of systems apart from those mentioned above are negative. PAST MEDICAL HISTORY: 1. Chronic abdominal pain. 2. History of small-bowel obstruction. 3. Hypertension. 4. Dyslipidemia. 5. Type 2 diabetes. 6. CKD, stage 3. 7. Combined chronic systolic and diastolic heart failure, stage C. 8. Coronary artery disease. 9. Chronic atrial flutter and fibrillation. 10. Normocytic-normochromic anemia. 11. Anxiety. PAST SURGICAL HISTORY: 1. Carotid endarterectomy. 2. Pacemaker placement. 3. AICD. 4. Laparoscopic cholecystectomy with ERCP. SOCIAL HISTORY: The patient currently smokes cigarettes. Denies any drug use. He drinks alcohol socially. ALLERGIES: PENICILLIN. CURRENT MEDICATIONS: 1. Aspirin. 2. Glipizide. 3. Clopidogrel. 4. Metformin. 5. Omeprazole. 6. Lisinopril. 7. Simvastatin. 8. Lasix. 9. Nitroglycerin. 10. Hyoscyamine. 11. Multivitamin. 12. Zofran ODT. 13. Dicyclomine. PHYSICAL EXAMINATION: GENERAL: The patient appears thin, but well developed and in no acute distress. VITAL SIGNS: Temperature 97.9, pulse 54, respirations 18, blood pressure 130/54, O2 saturation 99% on room air. HEENT: Normocephalic and atraumatic. Pupils are equal, round, and reactive to light. Sclerae are anicteric. Oropharynx is clear. NG tube in place. No significant discomfort associated with it. NECK: Supple. LUNGS: Clear to auscultation bilaterally. No wheezes, rales, or rhonchi. CARDIAC: Regular rate and rhythm. ABDOMEN: Soft, nondistended. No tenderness at present. No guarding or rigidity. No renal angle tenderness. EXTREMITIES: No edema or swelling. No calf tenderness. NEUROLOGIC: Alert and oriented x3. SKIN: Without rash or jaundice. LABORATORY DATA: Lactic acid 0.8. IMAGING DATA: As mentioned above in the HPI. IMPRESSION AND PLAN: Mr. Sebastian is being admitted for management of the following. 1. Severe recurring abdominal pain. The patient has been seen by Dr. Avila in the ED and I was told he would be taken to surgery later today. I do not see any laboratory studies done today and will request a CBC, coags, and CMP. lactic acid done today was normal. Given the history of congestive heart failure, we will give very gentle hydration in preparation for surgery. 2. Coronary artery disease/congestive heart failure. The patient with extensive cardiac history. We will confirm with Dr. Brewster if he has been cleared from cardiac perspective for surgery. We will check BMP with labs today. 3. Hypertension. Blood pressure ranging between 143 and 171 systolic. Continue p.r.n. medications. Resume home medications following surgery and continue to monitor blood pressure. 4. Diabetes mellitus type 2. Monitor glucose. Insulin sliding scale initiated. Continue to monitor glucose and resume home medications following surgery once taken off n.p.o. status. 5. Gastrointestinal prophylaxis. 6. Deep venous thrombosis prophylaxis with mechanical SCDs. 7. Full code status. Surrogate decision makers are his son, Josemanuel Sebastian Jr., and his grandson, Jayda Sebastian, both of who are taking turns being with the patient. The patient's case was discussed with Dr. Lauren, who agrees with plan of care as described above. Job ID: [id number]
[2018-12-21] MEDS ORDERED: PROPOFOL 200 MG/20 ML VIAL ONE (14:59)
[2018-12-21] MEDS ORDERED: Rocuronium Bromide 10 MG/ML (10ML VIAL) ONE (14:59)
[2018-12-21] MEDS ORDERED: Glycopyrrolate 0.2 MG/ML 5 ML SYRINGE ONE (14:59)
[2018-12-21] MEDS ORDERED: Ondansetron PF 4 MG/2 ML Vial ONE (14:59)
[2018-12-21] MEDS ORDERED: Lidocaine 1% PF 5 ML VIAL ONE (14:59)
[2018-12-21] MEDS ORDERED: Succinylcholine Chloride 20 MG/ML 10 ml SYRINGE FS ONE (14:59)
[2018-12-21] MEDS ORDERED: Fentanyl 100 MCG/2 ML VIAL ONE ×3 (15:44→22:25)
[2018-12-21 16:40] VITALS: BMI 19.8
--- NOTE | 2018-12-21 16:54 | PDOC.EVN ---
Event Note - Event Note Event Note: pt seen and examined. chart reviewed.Agree w H&P as dictated by PA .Discussed with her Pt feels better. NGt in place Going for Surgery in next few minutes.discussed w RN,No new questions will follow
[2018-12-21] MEDS ORDERED: Sodium Chloride 0.9% 100 ML ONE (17:23)
[2018-12-21] MEDS ORDERED: cefOXitin 2 GM VIAL ONE (17:23)
--- NOTE | 2018-12-21 19:01 | CON ---
DATE OF CONSULTATION: 12/21/2018 CHIEF COMPLAINT: Abdominal pain. HISTORY OF PRESENT ILLNESS: Mr. Sebastian is an 88-year-old man, whom I have been following over the last year for abdominal pain and belching and iron deficiency anemia. I performed the EGD and colonoscopy in February of 2018. 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 Since then, he has had progressively worsening abdominal pain. Back in September 2018, he was admitted to the hospital with small bowel obstruction and managed with NG decompression and after that, he followed up in GI clinic in November. He continued to complain of worsening abdominal pain, that would start in his back and radiate around to the front in his entire abdomen. He had lost from 162 pounds down to [address] scan had previously been negative for source of his pain. I requested a CT angiogram, which was performed on 12/15/2018. This showed dilated small bowel loops in the mid abdomen with swirling of the mesenteric vessels concerning for an internal hernia. 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 This would not be expected to cause mesenteric ischemia as a source of his pain. The source of his pain was thought to be due to the process causing the swirling mesentery and possible internal hernia. 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 He was referred back to Dr. Avila, who saw him in the office this week and arranged for a cardiac evaluation prior to surgery. Unfortunately, yesterday his pain markedly worsened and he went to the emergency room in [place] and imaging suggested small bowel obstruction again along with vomiting and worsening pain. He was transferred up to [facility] in [place] for further care. He has an NG tube in place now and his abdominal pain is doing better. He has been seen by Dr. Avila and the plan is to proceed with surgical intervention. PAST MEDICAL HISTORY: Anemia, cardiomyopathy, and diabetes mellitus. PAST SURGICAL HISTORY: Cholecystectomy. MEDICATIONS: Include; 1. Aspirin. 2. Plavix. 3. Furosemide. 4. Glipizide. 5. Lisinopril. 6. Metformin. 7. MiraLAX. 8. Omeprazole. 9. Simvastatin. FAMILY HISTORY: Negative for GI malignancies. SOCIAL HISTORY: No alcohol, tobacco, or drugs. ALLERGIES: PENICILLIN AND DAIRY PRODUCTS. REVIEW OF SYSTEMS: Negative x10 systems reviewed except as stated in the history of present illness. PHYSICAL EXAMINATION: VITAL SIGNS: On presentation to the ER, vital signs; blood pressure 162/63, temperature 97.9, and pulse 49. GENERAL: He is in no acute distress. Alert and oriented x3. HEENT: Eyes, have no scleral icterus. Oropharynx is clear without lesions. NECK: No cervical or supraclavicular lymphadenopathy. LUNGS: Clear to auscultation bilaterally. HEART: Regular rate and rhythm without murmur. ABDOMEN: Currently is soft with minimal tenderness with the NG tube in place. His bowel sounds are present. EXTREMITIES: No lower extremity edema. LABORATORY DATA: White blood cell count 6.9, hemoglobin 11.4, and platelets 268. Creatinine 1.39. Lactic acid 0.8. BNP 959. IMAGING: CT scan of the abdomen and pelvis last night shows again small bowel dilation concerning for small bowel obstruction. IMPRESSION: 1. Recurrent small bowel obstruction. CT angiogram from 12/15/2018, suggests swirling of the mesentery and possible internal hernia as a cause for recurrent obstructions. 2. History of iron deficiency anemia. 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 The EGD was otherwise normal. Had diverticulosis throughout the colon and moderate internal hemorrhoids in the colon was otherwise normal. RECOMMENDATIONS: 1. He has been evaluated by Dr. Avila and the plan is to proceed with surgical management. 2. I will be available if needed, please call if GI can be of assistance. Job ID: [id number]
[2018-12-21] MEDS ORDERED: Bupivacaine/Epinephrine 0.25% 30 ML VIAL ONE (19:12)
[2018-12-21] MEDS ORDERED: Promethazine HCl 25 MG/ML VIAL SLOW IVP PRN (22:33)
[2018-12-21] MEDS ORDERED: Promethazine HCl 25 MG/ML VIAL IM PRN ×2 (22:33→22:42)
[2018-12-21] MEDS ORDERED: Ondansetron HCl/PF 4 MG/2 ML Vial IVP PRN (22:33)
[2018-12-21] MEDS ORDERED: Morphine Sulfate 2 MG/ML SYRINGE SLOW IVP PRN (22:33)
[2018-12-21] MEDS ORDERED: Promethazine HCl 25 MG/ML VIAL ONE (22:36)
[2018-12-21] MEDS: Famotidine/PF 20 mg/2ml Vial SLOW IVP SCH (22:39)
[2018-12-21] MEDS ORDERED: diphenhydrAMINE 25 MG CAP PO PRN (22:42)
[2018-12-21] MEDS ORDERED: diphenhydrAMINE 50 MG/ML VIAL IM PRN (22:42)
[2018-12-21] MEDS ORDERED: diphenhydrAMINE 50 MG/ML VIAL IVP PRN (22:42)
[2018-12-21] MEDS ORDERED: Naloxone HCl 0.4 mg/ml Vial IV PRN (22:42)
[2018-12-21] MEDS ORDERED: Morphine CADD 1 MG/ML CADD IVPB PRN (22:42)
[2018-12-21] MEDS ORDERED: Zolpidem Tartrate 5 MG TAB PO PRN (22:42)
[2018-12-21] MEDS ORDERED: Communication Order-Pharmacy FS SCH (22:45)
[2018-12-21] MEDS ORDERED: ADMIXTURE FEE IV PRN (23:24)
[2018-12-21] MEDS ORDERED: MORPHINE IV PRN (23:24)
[2018-12-21] MEDS ORDERED: SODIUM CHLORIDE IV PRN (23:24)
[2018-12-22 06:42] LABS: #Monocytes 0.4 thou/uL (0.11-0.59); #Neutrophils 7.7 thou/uL (1.40-6.50); %Basophils 0.3 % (0.0-1.0); %Eosinophils 0.2 % (0.0-10.0); %Lymphocytes 10.3 % (21.0-51.0); %Monocytes 4.7 % (0.0-10.0); %Neutrophils 84.5 % (42.0-75.0); Hemoglobin 11.9 g/dL (14.0-18.0); Mean Corpuscular HGB CONC 31.7 g/dL (32.0-36.0); Mean Corpuscular Hemoglobin 27.1 pg (27.0-31.0); Mean Corpuscular Volume 85.4 fL (78.0-98.0); Mean Platelet Volume 7.6 fL (7.4-10.4); Platelet Count 258 thou/uL (130-400); RBC Distribution Width 14.5 % (11.5-14.5); White Blood Cell (WBC) Count 9.2 thou/uL (4.8-10.8)
[2018-12-22 06:50] LABS: Mean Corpuscular HGB CONC 31.8 g/dL (32.0-36.0); Mean Corpuscular Hemoglobin 27.2 pg (27.0-31.0); Mean Corpuscular Volume 85.4 fL (78.0-98.0); Mean Platelet Volume 7.4 fL (7.4-10.4); Platelet Count 265 thou/uL (130-400); RBC Distribution Width 14.4 % (11.5-14.5)
[2018-12-22 06:53] LABS: Band 9 % (5-11); Eosinophils 1 % (0-10); Lymphocytes 11 % (21-51); MDiff Complete? YES; Monocytes 3 % (0-10); Neutrophil 76 % (42-75); Platelet Morphology Comment Appears Adequate
[2018-12-22 07:04] LABS: ALT (SGPT) 12 U/L (8-55); AST (SGOT) 20 U/L (5-34); Albumin 3.3 g/dL (3.4-4.8); Alkaline Phosphatase 67 U/L (40-150); Anion Gap 15 mmol/L (10-20); BUN (Urea Nitrogen) 16 mg/dL (8.4-25.7); Bilirubin, Total 0.7 mg/dL (0.2-1.2); Calc. Creatinine Clearance 35 mL/min (70-130); Calcium 8.9 mg/dL (7.8-10.44); Carbon Dioxide 21 mmol/L (23-31); Chloride 107 mmol/L (98-107); Estimated GFR-MDRD 56; Globulin 2.8 g/dL (2.4-3.5); Glucose 120 mg/dL (83-110); Protein, Total 6.1 g/dL (5.8-8.1); Sodium 139 mmol/L (136-145)
--- NOTE | 2018-12-22 08:36 | CON ---
DATE OF CONSULTATION: 12/21/2018 INDICATION FOR CONSULTATION: An 88-year-old gentleman with small-bowel obstruction, who has a long history of coronary artery problems, coronary artery disease, congestive heart failure, AICD implant, atrial fibrillation as well as peripheral vascular disease, hypertension, hyperlipidemia, type 2 diabetes. He was seen a couple of days ago in the General Surgery office and then was complaining of some abdominal discomfort, most likely has chronic ongoing hernias, which have been becoming incarcerated. The pain became worse. He presented to the emergency room. I have been asked to see the patient regarding preop evaluation in the setting of multiple cardiac problems. At this time, he continues to work. He does heavy equipment operation. He has no complaints of chest pain or shortness of breath. He has a defibrillator check recently he says and there were no problems found. The defibrillator was implanted a couple of years ago and apparently he has had no shocks from the AICD. His last echocardiogram on record showed ejection fraction about 43%, this is in 2016. He was seen last year in the office. Actually, his last echocardiogram was in January 2018, ejection fraction of 25% to 30%. He has a functional AICD in place. He did have no significant obstructive valvular disease. Aortic valve was sclerotic, but open well. He does have mild mitral valve regurgitation. He had atrial fibrillation during that time of the echocardiogram. EKG today also still shows atrial fibrillation. Given the urgency of his procedure, we would rather proceed with his surgery. I am suspecting that his coronary artery disease is stable as well as his congestive heart failure symptoms since he continues to work and doing pretty heavy work and does not have any symptoms in doing so. It will be unlikely that he would experience more than with the anesthesia in the surgery than what he is actually doing for his workload is considered. At this time, he otherwise remains stable. He is asymptomatic from a cardiac standpoint. PAST MEDICAL HISTORY: Significant for: 1. Coronary artery disease, stent placement in 2007, this was done in [place]. Peripheral vascular disease. He has had left carotid endarterectomy in 2008. He has history of cardiomyopathy. Last ejection fraction was noted above. Ejection fraction was 25% to 30%. 2. AICD implant. 3. Hypertension. 4. Hyperlipidemia. 5. Type 2 diabetes. ALLERGIES: ALLERGIC TO PENICILLIN. SOCIAL HISTORY: No history of alcohol or tobacco abuse. He runs heavy equipment. FAMILY HISTORY: Noncontributory. REVIEW OF SYSTEMS: 12-point review of systems is unremarkable except what is noted in the history of present illness with abdominal discomfort. MEDICATIONS: Include: 1. Dicyclomine. 2. Furosemide. 3. Glipizide. 4. Lisinopril. 5. Metformin. 6. Nitroglycerin. 7. Omeprazole. 8. Ondansetron. 9. Simvastatin. 10. Tylenol with codeine. PHYSICAL EXAMINATION: GENERAL: Reveals a well-developed, well-nourished gentleman, who is in no acute distress. VITAL SIGNS: Blood pressure is 157/63, heart rate is in the 40s to 60s and shows atrial fibrillation. HEENT: Shows head to be normocephalic and atraumatic. He has well-healed surgical incision of the neck after left carotid endarterectomy and did not hear any significant bruits. Pulses are present. CHEST: Clear to auscultation. CARDIOVASCULAR: Reveals somewhat irregular rhythm this morning. There were no gross murmurs noted. No heaves or thrills. ABDOMEN: He has some mild distention in the epigastric area. However, he has bowel sounds somewhat high-pitched, but slightly tender and this is also tympanic. EXTREMITIES: Show no clubbing, cyanosis, or edema. Pedal pulses are present. NEUROLOGIC: He appears to be fully intact. DIAGNOSTIC DATA: EKG did show atrial fibrillation with a slow ventricular response. Heart rate was 49 beats per minute. LABORATORY DATA: Lactic acid was 0.8, potassium is 3.4, creatinine is 1.19, this is in September. I believe he has had a more recent laboratory data performed. His creatinine today is 1.7. Sodium is 140, potassium of 3.6. Troponin I is 0.015, hemoglobin 12.5, and WBC of 5.78. IMPRESSION: 1. Partial small-bowel obstruction, which will need to undergo surgical evaluation. He has planned exploratory laparotomy this morning, which maybe do percutaneously was small incision. He is a reasonable candidate to proceed with surgery at this time. 2. History of coronary artery disease, which appears to be stable. He is asymptomatic. 3. History of congestive heart failure. This also appears to be stable at this time. He does not have any symptoms of congestive heart failure. 4. Status post implant of AICD, apparently was recently checked a couple of months ago and is functioning normally. 5. Chronic atrial fibrillation with a slow ventricular response. He seems to be asymptomatic with this. Once he resolved his abdominal issues, he may need to start oral anticoagulation. He is taking aspirin and Plavix, but this is not be sufficient in this gentleman with atrial fibrillation to decrease the risk of a CVA by embolic phenomenon. 6. Diabetes. This will be dealt with by the primary care service. 7. Hypertension. This is under reasonable control at this time. We will be more than happy to continue to follow the patient with you throughout his hospital course. From a cardiac standpoint, he appears to be doing relatively well and will be cleared for surgery. Job ID: [id number]
[2018-12-22] MEDS: Famotidine/PF 20 mg/2ml Vial SLOW IVP SCH ×2 (08:54→20:29)
[2018-12-22] MEDS: Dextrose 5 %-0.45 % NaCl 1,000 ML IV SCH (08:55)
[2018-12-22] MEDS ORDERED: Prevnar 13-Val Conj/PF 0.5 ML SYRINGE IM ONE (09:00)
--- NOTE | 2018-12-22 12:44 | PDOC.CTH ---
Cardiology Progress Note - Subjective The pt seen and examined. No overnight events. No cardiac complaints. - Objective Vital Signs Temp Pulse Resp BP BP Pulse Ox 12/22/18 11:41 98.3 F 69 14 136/61 93 L 12/22/18 07:35 98.2 F 55 L 14 120/61 99 12/22/18 05:08 97.9 F 73 20 149/55 H 100 Weight 134 lb 8 oz 12/21/18 12/22/18 12/23/18 06:59 06:59 06:59 Intake Total 400 Output Total 475 Balance -75 - Physical Examination General/Neuro: alert & oriented x3 Neck: no JVD present Lungs: CTA Heart: RRR Abdomen: soft Extremities: other: - Labs Result Diagrams: 12/22/18 06:04 12/22/18 06:04 - Assessment/Plan 1. SBO - managed by surgeon and GI 2. Aflutter/AFib - well controlled HR 3. CAD - stable. 4. HTN - stable 5. Hyperlipidemia - 6. DM type 2 - managed by PCP 7. Anemia - 8. Chronic Combined HF - stable MAR reviewed * Will resume PO med when cleared by Surgeon/GI pt. seen and eval. by me. I agree with the a/P by the [employer].Cardiac status is stable. Chest clear. No BS yet. RRR. Review of Systems - Review of Systems Constitutional: reports: no symptoms reported EENTM: reports: no symptoms reported Respiratory: reports: no symptoms reported Cardiac (ROS): reports: no symptoms reported ABD/GI: reports: no symptoms reported
--- NOTE | 2018-12-22 15:31 | PDOC.PN ---
- Subjective Encounter Start Date: 12/22/18 Encounter Start Time: 15:29 Subjective: feels groggy an dcontinues to have pain in the abdomen -: POD #1 from abd Sx for SBO - Objective Resuscitation Status - Order Detail: 12/21/18 12:36 Resuscitation Status Routine Co-Sign Provider: Resuscitation Status: FULL: Full Resuscitation MAR Reviewed: Yes Vital Signs & Weight: Vital Signs (12 hours) Temp Pulse Resp BP BP Pulse Ox 12/22/18 11:41 98.3 F 69 14 136/61 93 L 12/22/18 08:54 99 12/22/18 07:35 98.2 F 55 L 14 120/61 99 12/22/18 05:08 97.9 F 73 20 149/55 H 100 Weight Weight 134 lb 8 oz I&O: 12/21/18 12/22/18 12/23/18 06:59 06:59 06:59 Intake Total 400 Output Total 475 Balance -75 Result Diagrams: 12/22/18 06:04 12/22/18 06:04 Additional Labs: Accuchecks 12/22/18 12/22/18 12/21/18 11:38 06:04 16:34 POC Glucose 125 H 119 H 97 Phys Exam - Physical Examination sleepy HEENT: PERRLA, moist MMs, sclera anicteric, oral pharynx no lesions Neck: no nodes, no JVD, supple, full ROM Respiratory: no wheezing, no rales, no rhonchi, clear to auscultation bilateral Cardiovascular: RRR, no significant murmur Gastrointestinal: soft, no distention, positive bowel sounds surgical incison clean and dry.TTP Musculoskeletal: no edema, pulses present Neurological: non-focal, normal sensation, moves all 4 limbs somnolent Dx/Plan (1) SBO (small bowel obstruction) Code(s): K56.609 - UNSP INTESTNL OBST, UNSP TO PARTIAL VERSUS COMPLETE OBST Status: Acute (2) Anemia, normocytic normochromic Code(s): D64.9 - ANEMIA, UNSPECIFIED Status: Chronic (3) Atrial fibrillation and flutter Code(s): I48.91 - UNSPECIFIED ATRIAL FIBRILLATION; I48.92 - UNSPECIFIED ATRIAL FLUTTER Status: Chronic (4) CAD (coronary artery disease) Code(s): I25.10 - ATHSCL HEART DISEASE OF [place] CORONARY ARTERY W/O ANG PCTRS Status: Chronic Qualifiers: (5) CKD (chronic kidney disease) stage 3, GFR 30-59 ml/min Code(s): N18.3 - CHRONIC KIDNEY DISEASE, STAGE 3 (MODERATE) Status: Chronic (6) Chronic combined systolic (congestive) and diastolic (congestive) heart failure Code(s): I50.42 - CHRONIC COMBINED SYSTOLIC AND DIASTOLIC HRT FAIL Status: Chronic Comment: stage C (7) Diabetes type 2, controlled Code(s): E11.9 - TYPE 2 DIABETES MELLITUS WITHOUT COMPLICATIONS Status: Chronic Qualifiers: (8) Dyslipidemia Code(s): E78.5 - HYPERLIPIDEMIA, UNSPECIFIED Status: Chronic (9) Hypertension Code(s): I10 - ESSENTIAL (PRIMARY) HYPERTENSION Status: Chronic Qualifiers: - Plan continue antibiotics, PT/OT, incentive spirometry, DVT proph w/SCDs cont NGT. s/p Sx last night -: follow recs for GS -: HD stable. -: cardiology following as well -: AM labs.IVF * . Review of Systems - Review of Systems Other: limited due to somnolence - Medications/Allergies Allergies/Adverse Reactions: Allergies Allergy/AdvReac Type Severity Reaction Status Date / Time fentanyl Allergy Verified 02/12/18 18:01 Penicillins Allergy Verified 02/12/18 18:01 Medications: Current Medications Clonidine (Catapres) 0.1 mg PO Q4H PRN PRN Reason: SBP > 160____ Dextrose/Water (Dextrose 50%) 25 gm SLOW IVP PRN PRN PRN Reason: Hypoglycemia Diphenhydramine HCl (Benadryl) 25 mg IVP Q3H PRN PRN Reason: Itching Diphenhydramine HCl (Benadryl) 25 mg PO Q3H PRN PRN Reason: Itching Diphenhydramine HCl (Benadryl) 25 mg IM Q3H PRN PRN Reason: Itching Famotidine (Pepcid) 20 mg SLOW IVP Q12HR [facility] Last Admin: 12/22/18 08:54 Dose: 20 mg Glucagon (Glucagon) 1 mg IM PRN PRN PRN Reason: Hypoglycemia Hydralazine HCl (Apresoline) 10 mg SLOW IVP Q4H PRN PRN Reason: SBP > 180 and HR < 70 Dextrose/Water (D5w) 1,000 mls @ 0 mls/hr IV .Q0M PRN PRN Reason: Hypoglycemia Dextrose/Sodium Chloride (D5 1/2 Ns) 1,000 mls @ 50 mls/hr IV .Q20H [facility] Last Admin: 12/22/18 08:55 Dose: Not Given Morphine Sulfate 100 mg/Miscellaneous Medication 1 each/ Sodium Chloride 100 mls @ 0 mls/hr IV ASDIR PRN PRN Reason: Pain Insulin Human Lispro (Humalog) 0 units SC .MILD SLIDING SCALE PRN PRN Reason: Mild Correctional Scale Insulin Human Lispro (Humalog) 0 units SC .BEDTIME SLIDING SC PRN PRN Reason: Bedtime Correctional Scale Naloxone HCl (Narcan) 0.2 mg IV Q5MIN PRN PRN Reason: Opiate Reversal Ondansetron HCl (Zofran) 4 mg IVP Q6H PRN PRN Reason: Nausea/Vomiting Promethazine HCl (Phenergan) 12.5 mg IM Q4H PRN PRN Reason: Nausea/Vomiting Sodium Chloride (Flush - Normal Saline) 10 ml IVF Q12HR [facility] Last Admin: 12/22/18 08:54 Dose: 10 ml Sodium Chloride (Flush - Normal Saline) 10 ml IVF PRN PRN PRN Reason: Saline Flush Zolpidem Tartrate (Ambien) 5 mg PO HSPRN PRN PRN Reason: Insomnia
--- NOTE | 2018-12-22 20:38 | PDOC.GSPN ---
Surgery Progress Note: Subj - Subjective Narrative: Feels ok, pain tolerable, no N/V but no flatus yet. NG call centre supervisor in color and volume minimal. Abd soft ND, incisions look good. A/P) SBO s/p JOSEFA awaiting return of bowel function. Continue current care. Encouraged ambulation. FC DC'd but no void yet. Uop had been marginal overnight. NS IVB then bladder scan if no output. Surgery Progress Note: Obj - Vital signs Vital signs: Vital Signs - Most Recent Temp Pulse Resp BP Pulse Ox 98.3 F 69 14 136/61 93 L 12/22/18 11:41 12/22/18 11:41 12/22/18 11:41 12/22/18 11:41 12/22/18 11:41 Surgery Progress Note: Results - Labs Result Diagrams: 12/22/18 06:04 12/22/18 06:04 Lab results: Laboratory Results - last 24 hr 12/22/18 12/22/18 11:38 15:52 POC Glucose 125 H 140 H
[2018-12-22] MEDS ORDERED: Sodium Chloride 0.9% 500 ML IV SCH (20:45)
[2018-12-22] MEDS ORDERED: Lorazepam 2 MG/ML VIAL IM PRN (23:29)
[2018-12-23] MEDS: Dextrose 5 %-0.45 % NaCl 1,000 ML IV SCH (01:53)
[2018-12-23 05:12] LABS: Bilirubin Large (Negative); Blood, Urine Large (Negative); Glucose, Urine (Dipstick) Negative (Negative); Leukocyte Moderate (Negative); Nitrite Positive (Negative); Protein, Urine (Dipstick) 100 mg/dL (Neg-Trace); RBC/HPF GREATER THAN 50-TNTC HPF (0-3); Specific Gravity, Urine 1.025 (1.002-1.036); pH, Urine 5.5 (5.0-9.0)
[2018-12-23 05:17] LABS: Pathc Cast-AUWi Flag 29.38 (0-2.49)
[2018-12-23 05:35] LABS: Clarity TURBID (Clear)
[2018-12-23 05:36] LABS: Bacteria/HPF 3+ HPF (None Seen); Renal Epithelial None Seen HPF (0-3); Transitional Epithelial NONE SEEN HPF (0-3); WBC/HPF 21-50 HPF (0-3); Yeast-All Forms None Seen HPF (None Seen)
[2018-12-23 05:37] LABS: Hyaline Casts/LPF 4-6 HYALINE CAST LPF (0-3 Hyaline); Other Casts/LPF None Seen LPF (0-3 Hyaline)
[2018-12-23] MEDS ORDERED: Sodium Chloride 0.9% 1,000 ML IV SCH (06:45)
[2018-12-23] MEDS: Famotidine/PF 20 mg/2ml Vial SLOW IVP SCH ×2 (08:13→20:54)
[2018-12-23] MEDS: Acetaminophen 1,000 MG in Premix Bag 1 BAG IVPB PRN ×2 (09:18→17:09)
--- NOTE | 2018-12-23 11:46 | PDOC.CTH ---
Cardiology Progress Note - Subjective The pt seen and examined. No overnight events. No cardiac complaints. His NG is off. He is more alerted this AM. - Objective Vital Signs Temp Pulse Resp BP Pulse Ox 12/23/18 11:24 97.9 F 67 16 142/68 H 95 12/23/18 07:50 98.5 F 77 14 155/68 H 95 12/23/18 03:40 97.8 F 75 18 168/74 H 95 12/23/18 00:03 98.8 F 74 18 166/64 H 95 Weight 134 lb 8 oz 12/22/18 12/23/18 12/24/18 06:59 06:59 06:59 Intake Total 400 2500 Output Total 475 620 Balance -75 1880 - Physical Examination General/Neuro: alert & oriented x3 Neck: no JVD present Lungs: CTA Heart: other: (irregular) Abdomen: soft Extremities: other: (No edema) - Labs Result Diagrams: 12/22/18 06:04 12/22/18 06:04 - Assessment/Plan 1. SBO with S/p JOSEFA - pain is stable for now; managed by surgeon and GI 2. Aflutter/AFib - well controlled HR 3. CAD - stable. 4. HTN - stable 5. Hyperlipidemia - 6. DM type 2 - managed by PCP 7. Anemia - 8. Chronic Combined HF - stable MAR reviewed * Will resume PO med when cleared by Surgeon/GI Review of Systems - Review of Systems Constitutional: reports: no symptoms reported EENTM: reports: no symptoms reported Respiratory: reports: no symptoms reported Cardiac (ROS): reports: no symptoms reported ABD/GI: reports: no symptoms reported : reports: no symptoms reported
[2018-12-23] MEDS ORDERED: Dextrose 5 %-0.45 % NaCl 1,000 ML IV SCH (13:00)
--- NOTE | 2018-12-23 13:15 | PDOC.PN ---
- Subjective Encounter Start Date: 12/23/18 Encounter Start Time: 13:13 Subjective: family at bedside & reports that he was agitated last nigt & pulled Out NGT -: had to be rstrianed last night for confusion & north was put in again -: pt c/o pain in abdomen and back.no BM yet per family - Objective Resuscitation Status - Order Detail: 12/21/18 12:36 Resuscitation Status Routine Co-Sign Provider: Resuscitation Status: FULL: Full Resuscitation MAR Reviewed: Yes Vital Signs & Weight: Vital Signs (12 hours) Temp Pulse Resp BP Pulse Ox 12/23/18 11:24 97.9 F 67 16 142/68 H 95 12/23/18 08:13 95 12/23/18 07:50 98.5 F 77 14 155/68 H 95 12/23/18 03:40 97.8 F 75 18 168/74 H 95 Weight Weight 134 lb 8 oz I&O: 12/22/18 12/23/18 12/24/18 06:59 06:59 06:59 Intake Total 400 2500 Output Total 475 620 Balance -75 1880 Result Diagrams: 12/22/18 06:04 12/22/18 06:04 Additional Labs: Accuchecks 12/23/18 12/23/18 12/22/18 11:21 05:42 21:05 POC Glucose 144 H 159 H 136 H 12/22/18 15:52 POC Glucose 140 H Phys Exam - Physical Examination somnolent and looks delirious HEENT: PERRLA, sclera anicteric, oral pharynx no lesions mucosa dry.poor dentition Neck: no nodes, no JVD Respiratory: no wheezing, no rales, no rhonchi, clear to auscultation bilateral Cardiovascular: RRR, no significant murmur Gastrointestinal: soft, positive bowel sounds TTP.BS heard in lateral quadrants.Incison dry and clean Musculoskeletal: no edema, pulses present Neurological: moves all 4 limbs Psychiatric: normal affect Deviation from normal: follows simple commands Skin: no rash Dx/Plan (1) SBO (small bowel obstruction) Code(s): K56.609 - UNSP INTESTNL OBST, UNSP TO PARTIAL VERSUS COMPLETE OBST Status: Acute Comment: s/p Sx.POD#2 (2) Acute metabolic encephalopathy Code(s): G93.41 - METABOLIC ENCEPHALOPATHY Status: Acute (3) Anemia, normocytic normochromic Code(s): D64.9 - ANEMIA, UNSPECIFIED Status: Chronic (4) Atrial fibrillation and flutter Code(s): I48.91 - UNSPECIFIED ATRIAL FIBRILLATION; I48.92 - UNSPECIFIED ATRIAL FLUTTER Status: Chronic Comment: stable.on BB (5) CAD (coronary artery disease) Code(s): I25.10 - ATHSCL HEART DISEASE OF [place] CORONARY ARTERY W/O ANG PCTRS Status: Chronic Qualifiers: Comment: Meds on hold due to NPO status.On ASA,Plavix,BB and DOTTY-I at home (6) CKD (chronic kidney disease) stage 3, GFR 30-59 ml/min Code(s): N18.3 - CHRONIC KIDNEY DISEASE, STAGE 3 (MODERATE) Status: Chronic (7) Chronic combined systolic (congestive) and diastolic (congestive) heart failure Code(s): I50.42 - CHRONIC COMBINED SYSTOLIC AND DIASTOLIC HRT FAIL Status: Chronic Comment: stage C (8) Diabetes type 2, controlled Code(s): E11.9 - TYPE 2 DIABETES MELLITUS WITHOUT COMPLICATIONS Status: Chronic Qualifiers: Comment: PO Hypoglycemics on hold due to NPO status & Hypoglycemia risk (9) Dyslipidemia Code(s): E78.5 - HYPERLIPIDEMIA, UNSPECIFIED Status: Chronic (10) Hypertension Code(s): I10 - ESSENTIAL (PRIMARY) HYPERTENSION Status: Chronic Qualifiers: - Plan plan discussed w/ family, kat catheter, continue antibiotics, respiratory therapy, incentive spirometry, out of bed/ambulate, DVT proph w/SCDs UA shows possible infection .will send for Cx & start empiric ABx -: cont NPO for now.No BM yet.unsure if passing gas or not.hold PO meds -: cont gentle IVF & monitor for fluid OL.h/o CHF.stable for now -: check labs in am.avoid narcotic & sedatives -: ISS and accuchecks * . Review of Systems - Review of Systems Other: can not be obtained due to somnolence and confusion - Medications/Allergies Allergies/Adverse Reactions: Allergies Allergy/AdvReac Type Severity Reaction Status Date / Time fentanyl Allergy Verified 02/12/18 18:01 Penicillins Allergy Verified 02/12/18 18:01 Medications: Current Medications Clonidine (Catapres) 0.1 mg PO Q4H PRN PRN Reason: SBP > 160____ Dextrose/Water (Dextrose 50%) 25 gm SLOW IVP PRN PRN PRN Reason: Hypoglycemia Diphenhydramine HCl (Benadryl) 25 mg IVP Q3H PRN PRN Reason: Itching Diphenhydramine HCl (Benadryl) 25 mg PO Q3H PRN PRN Reason: Itching Diphenhydramine HCl (Benadryl) 25 mg IM Q3H PRN PRN Reason: Itching Famotidine (Pepcid) 20 mg SLOW IVP Q12HR [facility] Last Admin: 12/23/18 08:13 Dose: 20 mg Glucagon (Glucagon) 1 mg IM PRN PRN PRN Reason: Hypoglycemia Hydralazine HCl (Apresoline) 10 mg SLOW IVP Q4H PRN PRN Reason: SBP > 160 and HR < 70 Dextrose/Water (D5w) 1,000 mls @ 0 mls/hr IV .Q0M PRN PRN Reason: Hypoglycemia Acetaminophen 1,000 mg/ Device 100 mls @ 400 mls/hr IVPB Q6H PRN PRN Reason: Pain Stop: 12/24/18 06:39 Last Admin: 12/23/18 09:18 Dose: 100 mls Levofloxacin 500 mg/ Device 100 mls @ 100 mls/hr IVPB Q24HR [facility] Last Admin: 12/23/18 10:45 Dose: 100 mls Dextrose/Sodium Chloride (D5 1/2 Ns) 1,000 mls @ 120 mls/hr IV .Q8H20M [facility] Last Admin: 12/23/18 13:00 Dose: 1,000 mls Insulin Human Lispro (Humalog) 0 units SC .MILD SLIDING SCALE PRN PRN Reason: Mild Correctional Scale Insulin Human Lispro (Humalog) 0 units SC .BEDTIME SLIDING SC PRN PRN Reason: Bedtime Correctional Scale Lorazepam (Ativan) 1 mg IM ONE PRN PRN Reason: Agitation Stop: 12/23/18 23:30 Last Admin: 12/23/18 00:27 Dose: 1 mg Naloxone HCl (Narcan) 0.2 mg IV Q5MIN PRN PRN Reason: Opiate Reversal Ondansetron HCl (Zofran) 4 mg IVP Q6H PRN PRN Reason: Nausea/Vomiting Promethazine HCl (Phenergan) 12.5 mg IM Q4H PRN PRN Reason: Nausea/Vomiting Sodium Chloride (Flush - Normal Saline) 10 ml IVF Q12HR [facility] Last Admin: 12/23/18 08:13 Dose: 10 ml Sodium Chloride (Flush - Normal Saline) 10 ml IVF PRN PRN PRN Reason: Saline Flush Zolpidem Tartrate (Ambien) 5 mg PO HSPRN PRN PRN Reason: Insomnia
--- NOTE | 2018-12-23 13:21 | PQF ---
PARKER GEIGER RICHA MD [id number] SURG [id number]- [id number] CLINICAL DOCUMENTATION IMPROVEMENT CLARIFICATION FORM: ICD-10 Updated PLEASE DO AN ADDENDUM TO THE PROGRESS NOTE WITH ANY DOCUMENTATION UPDATES OR ADDITIONS AND CARRY THROUGH TO DC SUMMARY. THANK YOU. DATE: 12/21/18 ATTN: DR Lauren, Please exercise your independent, professional judgment in responding to the clarification form. Clinical indicators are provided on the bottom of this form for your review Please check appropriate box(s): [X ] Encephalopathy: Type: [ X] Acute [ ] Subacute [ ] Chronic Etiology: [ X] Metabolic due to UTI [ ] Toxic due to anesthesia [ ] Drug induced: [ ] Unspecified [ ] in the setting of underlying dementia [ ] Other (please specify) [ ] Transient Alteration of Awareness [ ] Other diagnosis [ ] Unable to determine In addition, please specify: Present on Admission (POA): [ ] Yes [ X ] No [ ] Unable to determine For continuity of documentation, please document condition throughout progress notes and discharge summary. Thank You. CLINICAL INDICATORS - SIGNS / SYMPTOMS / LABS Altered mental status / confusion improving once cause is corrected (acute)--> 21:30 notes by Jeimy Toro--IV pulled out by patien; quite agitated and disoreinted; pulled out NG tube. Metabolic / electrolyte abnormality--> UA 12/23 moderate leuk est, wbc 21-50 per lab RISK FACTORS SBO s/p JOSEFA 12/21 per 12/22 Surg note Infectious process-UA with wbc 21-50, mod leuk est 12/23 per lab TREATMENTS: soft restraints 12/22 orders IV fluids--> 500 ml bolus over 2 hours 12/22 orders to 12/23 1 liter NS bolus then D5 1/2 NS at 120 per NOV bed alarm on 12/22 and re-orient per 12/22 Cortez note IV antibotics: 12/23 Levaquin per MAR (This form is maintained as a part of the permanent medical record) 2014 [employer]. All Rights Reserved Zakiya Padron, RN, BSN, CCDS [email or web address] [phone] MTDD
--- NOTE | 2018-12-23 17:49 | PDOC.GSPN ---
Surgery Progress Note: Subj - Subjective Narrative: She states that he is feeling okay now but had a bad night. He was unable to void in the nurses had to replace his Pandya catheter. His urine output was dark and low volume. The hospitalist sent a urinalysis which showed bacteria so they' re treating him for UTI. His nurse states that he was agitated and pulling things out and she didn't think he was using his SMOKED MEAT PREPARER. His son thinks that he was over using his SMOKED MEAT PREPARER and that made him confused, but his nurse thinks that he wasn't using his SMOKED MEAT PREPARER and the patient states that he was upset because he was hurting. In either case he is feeling better today and is no longer confused or agitated. His urine output was low over the security shift supervisor and I gave him a bolus this morning, but his urine output is still somewhat marginal. I increased the basal rate and ordered another bolus. His urine is dark in color and I think that he is probably third spacing into his abdomen some and dehydrated. His incisions looked good and his abdomen is not distended. His tenderness is appropriate for his stage of recovery. He is passing flatus but has not yet had a bowel movement and he is tolerating liquid diet. Assessment/plan: Doing well status post lysis of adhesions for multiply intermittent bowel obstruction found to be due to adhesions making him susceptible to volvulus. He is passing flatus and tolerating his diet. Once he has bowel movements we will advance his diet further. We are going to keep an eye on his urine output and fluid balance, and his nurses have been instructed to call if his urine output is less than [address] Winchester is covering for the weekend. Surgery Progress Note: Obj - Vital signs Vital signs: Vital Signs - Most Recent Temp Pulse Resp BP Pulse Ox 97.6 F 69 16 135/66 94 L 12/23/18 15:18 12/23/18 15:18 12/23/18 15:18 12/23/18 15:18 12/23/18 15:18 Surgery Progress Note: Results - Labs Result Diagrams: 12/22/18 06:04 12/22/18 06:04 Lab results: Laboratory Results - last 24 hr 12/23/18 12/23/18 12/23/18 05:42 11:21 15:16 POC Glucose 159 H 144 H 170 H
[2018-12-23] MEDS ORDERED: Sodium Chloride 0.9% 1,000 ML IV ONE (18:00)
[2018-12-23] MEDS: Sodium Chloride 0.9% 1,000 ML IV SCH (20:42)
[2018-12-23] MEDS ORDERED: Pantoprazole 40 MG VIAL IVP SCH (22:15)
[2018-12-24] MEDS: Acetaminophen 1,000 MG in Premix Bag 1 BAG IVPB PRN ×3 (01:09→17:05)
--- NOTE | 2018-12-24 01:42 | OP ---
DATE OF PROCEDURE: 12/21/2018 PROCEDURE PERFORMED: Laparoscopic hand-assisted lysis of adhesions. PREOPERATIVE DIAGNOSIS: Multiple recurrent small bowel obstructions. POSTOPERATIVE DIAGNOSIS: Multiple recurrent small bowel obstructions. HISTORY: Mr. Sebastian is an 88-year-old man who has had multiple episodes of small-bowel obstruction. CT angio showed twisting of the mesentery in the left upper quadrant concerning for an internal hernia. He presented back to the hospital with recurrent symptoms which improved with bowel rest, the recommendation was made to proceed to the operating room for diagnostic laparoscopy and likely lysis of adhesions. DESCRIPTION OF PROCEDURE: After informed consent was obtained and appropriate preoperative antibiotics administered, the patient was taken to the operating room. He was placed in a supine position and general endotracheal anesthesia was administered. He was prepped and draped in a standard sterile fashion and local anesthesia infused through skin and subcutaneous tissues. At the level of the umbilicus a transverse skin incision was made and the fascia was elevated. A Veress needle was placed into the abdominal cavity without difficulty and carbon dioxide gas insufflated to intraabdominal pressure of 15 which the patient tolerated well. The Veress needle was withdrawn and a ClearView port advanced. There were no significant adhesions in the area of the incision and no evidence of Veress needle or trocar injury, but the patient was noted to have dilated bowel loops in the left side of his abdomen. Additional dissecting trocars were placed laterally and the bowel elevated, decompressed bowel was seen, leading toward the base of the mesentery where the dilated bowel was found. There were not any adhesive bands creating an internal hernia, but the mesentery appeared twisted. The mesentery was rotated to untwist it and a large amount of dilated bowel was brought down from that area. However, the volvulus could not be completely reduced because of the dilated nature of the bowel. Therefore, the umbilical incision was extended to allow placement of a hand port following which the bowel was able to be completely de-torsed and it was confirmed that there was no adhesive band creating an internal hernia. However, the patient had fairly dense adhesions between the mesentery of the terminal ileum and the mid jejunum which was creating a tunnel-like shape to the mesentery, making it more prone to twist at that location. These adhesions were fairly dense and chronic in appearance. The bowel was viable. The adhesions were carefully taken down using sharp dissection without cautery due to the proximity of the bowel wall. This area was able to be dissected free and flattened out following which the mesentery had a more natural configuration. To prevent readherence in this area, a piece of Seprafilm was placed over the mesentery where the abnormal adhesions had been located. Hemostasis was verified and the entire bowel appeared viable and there was already gas passing through from the distended loops of bowel to the previously decompressed distal bowel loops. The entire bowel was run from the ligament of Treitz to the terminal ileum and no significant abnormalities or other adhesions were located. Bowel was returned to its normal anatomic location and the dissecting trocars removed and hemostasis verified. The fascia was then closed with a running PDS suture and the skin incisions closed with 4-0 Monocryl subcuticular sutures. Dermabond dressings were placed. The patient was extubated and taken to Recovery in good condition. Estimated blood loss was minimal. There were no complications. There were no specimens. Job ID: [id number]
[2018-12-24 05:18] LABS: #Eosinphils 0.2 thou/uL (0.0-0.7); #Lymphocytes 0.7 thou/uL (1.20-3.40); #Monocytes 0.4 thou/uL (0.11-0.59); %Basophils 0.1 % (0.0-1.0); %Eosinophils 2.9 % (0.0-10.0); %Lymphocytes 9.5 % (21.0-51.0); %Monocytes 4.9 % (0.0-10.0); %Neutrophils 82.7 % (42.0-75.0); Mean Corpuscular HGB CONC 32.7 g/dL (32.0-36.0); Mean Corpuscular Volume 85.7 fL (78.0-98.0); Mean Platelet Volume 7.6 fL (7.4-10.4); Platelet Count 239 thou/uL (130-400); RBC Distribution Width 14.4 % (11.5-14.5); Red Blood Cell (RBC) Count 3.91 mill/uL (4.70-6.10); White Blood Cell (WBC) Count 7.3 thou/uL (4.8-10.8)
[2018-12-24] MEDS: Sodium Chloride 0.9% 1,000 ML IV SCH ×3 (05:28→17:05)
[2018-12-24 05:34] LABS: Anion Gap 12 mmol/L (10-20); BUN (Urea Nitrogen) 17 mg/dL (8.4-25.7); Calc. Creatinine Clearance 42 mL/min (70-130); Calcium 8.3 mg/dL (7.8-10.44); Carbon Dioxide 21 mmol/L (23-31); Chloride 108 mmol/L (98-107); Estimated GFR-MDRD 68; Glucose 111 mg/dL (83-110); Sodium 137 mmol/L (136-145)
[2018-12-24] MEDS: hydrALAZINE 20 MG/ML VIAL SLOW IVP PRN ×2 (06:07→09:40)
[2018-12-24] MEDS: Famotidine/PF 20 mg/2ml Vial SLOW IVP SCH ×2 (08:35→20:29)
[2018-12-24] MEDS: Pantoprazole 40 MG VIAL IVP SCH (08:36)
--- NOTE | 2018-12-24 11:23 | PRG ---
DATE OF SERVICE: 12/24/2018 SUBJECTIVE: The patient is doing well. He is tolerating full liquids well. He has had 2 bowel movements. He denies any nausea or vomiting. Pain is stable at about 5. PHYSICAL EXAMINATION: VITAL SIGNS: His temperature is 97.8, pulse 65, blood pressure 165/74. GENERAL: He is awake, alert. HEENT: Unremarkable. LUNGS: Clear. ABDOMEN: Soft, nondistended. Good bowel sounds. LABORATORY DATA: His white count is 7.3, H and H are 11 and 33, platelet count 239. Electrolytes are fine. ASSESSMENT: Stable after lysis of adhesions. PLAN: Continue physical therapy. The plan is to eventually have him go to the half-way. He still has catheter in, but the family says that they wanted to keep that in because of a UTI that they are trying to clear this. Job ID: [id number]
--- NOTE | 2018-12-24 13:30 | PDOC.PN ---
- Subjective Encounter Start Date: 12/24/18 Encounter Start Time: 13:28 Subjective: feels much better. 2 BMs this morning,still abd pain but better -: family requests SNIF placement - Objective Resuscitation Status - Order Detail: 12/21/18 12:36 Resuscitation Status Routine Co-Sign Provider: Resuscitation Status: FULL: Full Resuscitation MAR Reviewed: Yes Vital Signs & Weight: Vital Signs (12 hours) Temp Pulse Resp BP BP Pulse Ox 12/24/18 12:00 98.8 F 88 16 112/63 95 12/24/18 09:40 65 165/74 H 12/24/18 08:34 99 12/24/18 08:00 97.8 F 65 20 165/74 H 99 12/24/18 06:07 63 162/72 H 12/24/18 05:01 97.4 F L 63 18 162/72 H 93 L Weight Weight 134 lb 8 oz I&O: 12/23/18 12/24/18 12/25/18 06:59 06:59 06:59 Intake Total 2500 3230 200 Output Total 620 625 Balance 1880 2605 200 Result Diagrams: 12/24/18 04:45 12/24/18 04:45 Additional Labs: Accuchecks 12/24/18 12/24/18 12/23/18 10:45 05:34 20:40 POC Glucose 165 H 111 H 112 H 12/23/18 15:16 POC Glucose 170 H Laboratory Tests 10/12/18 12/24/18 13:09 00:44 Troponin I 0.016 0.119 H Phys Exam - Physical Examination Constitutional: NAD AAOX3 ,sitting up in chair HEENT: PERRLA, moist MMs, sclera anicteric, oral pharynx no lesions Neck: no nodes, no JVD, supple, full ROM Respiratory: no wheezing, no rales, no rhonchi, clear to auscultation bilateral Cardiovascular: RRR, no significant murmur Gastrointestinal: soft, no distention, positive bowel sounds Musculoskeletal: no edema, pulses present Neurological: non-focal, normal sensation, moves all 4 limbs Psychiatric: normal affect, A&O x 3 Dx/Plan (1) SBO (small bowel obstruction) Code(s): K56.609 - UNSP INTESTNL OBST, UNSP TO PARTIAL VERSUS COMPLETE OBST Status: Acute Comment: s/p Sx.POD#2 (2) UTI (urinary tract infection) Status: Suspected (3) Acute metabolic encephalopathy Code(s): G93.41 - METABOLIC ENCEPHALOPATHY Status: Resolved (4) Anemia, normocytic normochromic Code(s): D64.9 - ANEMIA, UNSPECIFIED Status: Chronic (5) Atrial fibrillation and flutter Code(s): I48.91 - UNSPECIFIED ATRIAL FIBRILLATION; I48.92 - UNSPECIFIED ATRIAL FLUTTER Status: Chronic Comment: stable.on BB (6) CAD (coronary artery disease) Code(s): I25.10 - ATHSCL HEART DISEASE OF [place] CORONARY ARTERY W/O ANG PCTRS Status: Chronic Qualifiers: Comment: Meds on hold due to NPO status.On ASA,Plavix,BB and DOTTY-I at home (7) CKD (chronic kidney disease) stage 3, GFR 30-59 ml/min Code(s): N18.3 - CHRONIC KIDNEY DISEASE, STAGE 3 (MODERATE) Status: Chronic (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 Code(s): I50.42 - CHRONIC COMBINED SYSTOLIC AND DIASTOLIC HRT FAIL Status: Chronic Comment: stage C (9) Diabetes type 2, controlled Code(s): E11.9 - TYPE 2 DIABETES MELLITUS WITHOUT COMPLICATIONS Status: Chronic Qualifiers: Comment: PO Hypoglycemics on hold due to NPO status & Hypoglycemia risk (10) Dyslipidemia Code(s): E78.5 - HYPERLIPIDEMIA, UNSPECIFIED Status: Chronic (11) Hypertension Code(s): I10 - ESSENTIAL (PRIMARY) HYPERTENSION Status: Chronic Qualifiers: - Plan continue antibiotics, PT/OT, respiratory therapy, incentive spirometry, out of bed/ambulate, DVT proph w/SCDs Bowel function coming better.cont care.advance diet -: cont ABx.urine Cx negative so far -: am labs -: SNU eval. * . Review of Systems - Review of Systems Constitutional: weakness, malaise. negative: fever, chills, sweats, other Respiratory: negative: Cough, Dry, Shortness of Breath, Hemoptysis, SOB with Excertion, Pleuritic Pain, Sputum, Wheezing Cardiovascular: negative: chest pain, palpitations, orthopnea, paroxysmal nocturnal dyspnea, edema, light headedness, other Gastrointestinal: Abdominal Pain. negative: Nausea, Vomiting, Diarrhea, Constipation, Melena, Hematochezia, Other Genitourinary: negative: Dysuria, Frequency, Incontinence, Hematuria, Retention , Other Musculoskeletal: negative: Neck Pain, Shoulder Pain, Arm Pain, Back Pain, Hand Pain, Leg Pain, Foot Pain, Other Neurological: negative: Weakness, Numbness, Incoordination, Change in Speech, Confusion, Seizures, Other - Medications/Allergies Allergies/Adverse Reactions: Allergies Allergy/AdvReac Type Severity Reaction Status Date / Time fentanyl Allergy Verified 02/12/18 18:01 Penicillins Allergy Verified 02/12/18 18:01 Medications: Current Medications Clonidine (Catapres) 0.1 mg PO Q4H PRN PRN Reason: SBP > 160____ Dextrose/Water (Dextrose 50%) 25 gm SLOW IVP PRN PRN PRN Reason: Hypoglycemia Diphenhydramine HCl (Benadryl) 25 mg IVP Q3H PRN PRN Reason: Itching Diphenhydramine HCl (Benadryl) 25 mg PO Q3H PRN PRN Reason: Itching Diphenhydramine HCl (Benadryl) 25 mg IM Q3H PRN PRN Reason: Itching Famotidine (Pepcid) 20 mg SLOW IVP Q12HR [facility] Last Admin: 12/24/18 08:35 Dose: 20 mg Glucagon (Glucagon) 1 mg IM PRN PRN PRN Reason: Hypoglycemia Hydralazine HCl (Apresoline) 10 mg SLOW IVP Q4H PRN PRN Reason: SBP > 160 and HR < 70 Last Admin: 12/24/18 09:40 Dose: 10 mg Dextrose/Water (D5w) 1,000 mls @ 0 mls/hr IV .Q0M PRN PRN Reason: Hypoglycemia Levofloxacin 500 mg/ Device 100 mls @ 100 mls/hr IVPB Q24HR [facility] Last Admin: 12/24/18 09:39 Dose: 100 mls Sodium Chloride (Normal Saline 0.9%) 1,000 mls @ 120 mls/hr IV .Q8H20M [facility] Last Admin: 12/24/18 08:39 Dose: 1,000 mls Acetaminophen 1,000 mg/ Device 100 mls @ 400 mls/hr IVPB Q8H PRN PRN Reason: Fever/Mild Pain Stop: 12/25/18 22:00 Last Admin: 12/24/18 09:40 Dose: 100 mls Insulin Human Lispro (Humalog) 0 units SC .MILD SLIDING SCALE PRN PRN Reason: Mild Correctional Scale Insulin Human Lispro (Humalog) 0 units SC .BEDTIME SLIDING SC PRN PRN Reason: Bedtime Correctional Scale Naloxone HCl (Narcan) 0.2 mg IV Q5MIN PRN PRN Reason: Opiate Reversal Ondansetron HCl (Zofran) 4 mg IVP Q6H PRN PRN Reason: Nausea/Vomiting Pantoprazole Sodium (Protonix) 40 mg IVP DAILY [facility] Last Admin: 12/24/18 08:36 Dose: 40 mg Promethazine HCl (Phenergan) 12.5 mg IM Q4H PRN PRN Reason: Nausea/Vomiting Sodium Chloride (Flush - Normal Saline) 10 ml IVF Q12HR [facility] Last Admin: 12/24/18 08:36 Dose: 10 ml Sodium Chloride (Flush - Normal Saline) 10 ml IVF PRN PRN PRN Reason: Saline Flush Zolpidem Tartrate (Ambien) 5 mg PO HSPRN PRN PRN Reason: Insomnia
--- NOTE | 2018-12-24 15:36 | EKG ---
Test Reason : Blood Pressure : / mmHG Vent. Rate : 049 BPM Atrial Rate : 059 BPM P-R Int : 000 ms QRS Dur : 106 ms QT Int : 482 ms P-R-T Axes : 000 -29 103 degrees QTc Int : 435 ms Atrial fibrillation with slow ventricular response with a competing junctional pacemaker Moderate voltage criteria for LVH, may be normal variant Confirmed by PEDRO BOUCHER ([id number]), slot editor MARGAUX HENNESSY ([id number]) on 12/24/2018 3:35:34 PM Referred By: Confirmed By:PEDRO BOUCHER
--- NOTE | 2018-12-24 18:20 | PDOC.CTH ---
Cardiology Progress Note - Subjective The pt seen and examined. No overnight events. No cardiac complaints. Had 2 BM. - Objective Vital Signs Temp Pulse Resp BP BP Pulse Ox 12/24/18 16:19 97.7 F 68 18 138/51 L 97 12/24/18 12:00 98.8 F 88 16 112/63 95 12/24/18 09:40 65 165/74 H 12/24/18 08:34 99 12/24/18 08:00 97.8 F 65 20 165/74 H 99 Weight 134 lb 8 oz 12/23/18 12/24/18 12/25/18 06:59 06:59 06:59 Intake Total 2500 3230 1940 Output Total 620 625 425 Balance 1880 2605 1515 - Physical Examination General/Neuro: alert & oriented x3 Neck: no JVD present Lungs: other: (diminished at bases) Heart: other: (irregular) Abdomen: soft Extremities: other: (No edema) - Labs Result Diagrams: 12/24/18 04:45 12/24/18 04:45 Troponin/CKMB CK-MB (CK-2) 2.0 ng/mL (0-6.6) 12/24/18 00:44 Troponin I 0.119 ng/mL (< 0.028) H 12/24/18 00:44 - Assessment/Plan 1. SBO with S/p JOSEFA - pain is stable for now; managed by surgeon and GI 2. Aflutter/AFib - well controlled HR; Holding any OAC for now until clear by Surgeon/GI 3. CAD - stable. 4. HTN - stable 5. Hyperlipidemia - 6. DM type 2 - managed by PCP 7. Anemia - 8. Chronic Combined HF - stable MAR reviewed * Will resume PO med when cleared by Surgeon/GI Pt. seen and eval. by me. I agree with the /P by the Operations Research Manager. He was resting comfortably . Chest clear. irreg. Review of Systems - Review of Systems Constitutional: reports: no symptoms reported EENTM: reports: no symptoms reported Respiratory: reports: no symptoms reported Cardiac (ROS): reports: no symptoms reported ABD/GI: reports: no symptoms reported : reports: no symptoms reported Musculoskeletal: reports: no symptoms reported
[2018-12-25] MEDS: Acetaminophen 1,000 MG in Premix Bag 1 BAG IVPB PRN ×3 (01:12→15:57)
[2018-12-25] MEDS: Sodium Chloride 0.9% 1,000 ML IV SCH ×3 (06:53→20:43)
[2018-12-25] MEDS: Famotidine/PF 20 mg/2ml Vial SLOW IVP SCH ×2 (08:24→20:45)
[2018-12-25] MEDS: Pantoprazole 40 MG VIAL IVP SCH (08:24)
[2018-12-25] MEDS ORDERED: Metoprolol Tartrate 50 MG TAB PO SCH (10:45)
--- NOTE | 2018-12-25 11:50 | PRG ---
DATE OF SERVICE: 12/25/2018 SUBJECTIVE: The patient says he feels good. He is tolerating full liquids well. Appetite is not great. No nausea or vomiting. He is having bowel movements. OBJECTIVE: GENERAL: On examination, he looks good. He is up, eating. ABDOMEN: soft. Minimal tenderness. No distention. He still has a Pandya in, but evidently he went into urinary retention and had to have it placed again, it is draining clear urine currently. PLAN: Plan is to start Flomax, discontinue Pandya in the morning. He is awaiting correction placement. Job ID: [id number]
--- NOTE | 2018-12-25 12:47 | PDOC.PN ---
- Subjective Encounter Start Date: 12/25/18 Encounter Start Time: 12:45 Subjective: he had a "bucket full" of stools this morning -: abd pain better - Objective Resuscitation Status - Order Detail: 12/21/18 12:36 Resuscitation Status Routine Co-Sign Provider: Resuscitation Status: FULL: Full Resuscitation MAR Reviewed: Yes Vital Signs & Weight: Vital Signs (12 hours) Temp Pulse Resp BP Pulse Ox 12/25/18 11:43 97.4 F L 67 18 175/72 H 95 12/25/18 08:24 96 12/25/18 08:06 98.0 F 71 16 179/67 H 96 12/25/18 05:39 97.9 F 63 18 146/64 H 98 Weight Weight 134 lb 8 oz I&O: 12/24/18 12/25/18 12/26/18 06:59 06:59 06:59 Intake Total 3230 3480 Output Total 625 775 Balance 2605 2705 Result Diagrams: 12/24/18 04:45 12/24/18 04:45 Additional Labs: Accuchecks 12/25/18 12/25/18 12/24/18 11:30 05:39 20:21 POC Glucose 126 H 108 109 12/24/18 15:52 POC Glucose 112 H Microbiology 12/23/18 04:34 Urine clean catch Urine Culture - Preliminary NO GROWTH AT 24 HOURS Phys Exam - Physical Examination Constitutional: NAD HEENT: PERRLA, moist MMs, sclera anicteric, oral pharynx no lesions Neck: no nodes, no JVD, supple, full ROM Respiratory: no wheezing, no rales, no rhonchi, clear to auscultation bilateral Cardiovascular: RRR, no significant murmur Gastrointestinal: soft, non-tender, no distention, positive bowel sounds incision clean and dry Musculoskeletal: no edema, pulses present Neurological: non-focal, normal sensation, moves all 4 limbs Psychiatric: normal affect, A&O x 3 Skin: no rash, normal turgor, cap refill <2 seconds Dx/Plan (1) SBO (small bowel obstruction) Code(s): K56.609 - UNSP INTESTNL OBST, UNSP TO PARTIAL VERSUS COMPLETE OBST Status: Acute Comment: s/p Sx.POD#4 (2) UTI (urinary tract infection) Status: Suspected Comment: Cx negative so far.Urinary retention.High risk for Infection.Empiric ABx (3) Acute metabolic encephalopathy Code(s): G93.41 - METABOLIC ENCEPHALOPATHY Status: Resolved (4) Anemia, normocytic normochromic Code(s): D64.9 - ANEMIA, UNSPECIFIED Status: Chronic (5) Atrial fibrillation and flutter Code(s): I48.91 - UNSPECIFIED ATRIAL FIBRILLATION; I48.92 - UNSPECIFIED ATRIAL FLUTTER Status: Chronic Comment: stable.on BB (6) CAD (coronary artery disease) Code(s): I25.10 - ATHSCL HEART DISEASE OF [place] CORONARY ARTERY W/O ANG PCTRS Status: Chronic Qualifiers: Comment: Meds on hold due to NPO status.On ASA,Plavix,BB and DOTTY-I at home (7) CKD (chronic kidney disease) stage 3, GFR 30-59 ml/min Code(s): N18.3 - CHRONIC KIDNEY DISEASE, STAGE 3 (MODERATE) Status: Chronic (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 Code(s): I50.42 - CHRONIC COMBINED SYSTOLIC AND DIASTOLIC HRT FAIL Status: Chronic Comment: stage C (9) Diabetes type 2, controlled Code(s): E11.9 - TYPE 2 DIABETES MELLITUS WITHOUT COMPLICATIONS Status: Chronic Qualifiers: Comment: PO Hypoglycemics on hold due to NPO status & Hypoglycemia risk (10) Dyslipidemia Code(s): E78.5 - HYPERLIPIDEMIA, UNSPECIFIED Status: Chronic (11) Hypertension Code(s): I10 - ESSENTIAL (PRIMARY) HYPERTENSION Status: Chronic Qualifiers: - Plan DVT proph w/SCDs reduce IVF as BP high and Pt eating. -: restart BB and DOTTY-I.ASA & Plavix on hold.restart when Ok w GS -: rehab eval.HD stable. -: am labs * . Review of Systems - Review of Systems Constitutional: negative: fever, chills, sweats, weakness, malaise, other Respiratory: negative: Cough, Dry, Shortness of Breath, Hemoptysis, SOB with Excertion, Pleuritic Pain, Sputum, Wheezing Gastrointestinal: Abdominal Pain. negative: Nausea, Vomiting, Diarrhea, Constipation, Melena, Hematochezia, Other Genitourinary: negative: Dysuria, Frequency, Incontinence, Hematuria, Retention , Other Musculoskeletal: negative: Neck Pain, Shoulder Pain, Arm Pain, Back Pain, Hand Pain, Leg Pain, Foot Pain, Other Skin: negative: Rash, Lesions, Floyd, Bruising, Other Neurological: negative: Weakness, Numbness, Incoordination, Change in Speech, Confusion, Seizures, Other - Medications/Allergies Allergies/Adverse Reactions: Allergies Allergy/AdvReac Type Severity Reaction Status Date / Time fentanyl Allergy Verified 02/12/18 18:01 Penicillins Allergy Verified 02/12/18 18:01 Medications: Current Medications Clonidine (Catapres) 0.1 mg PO Q4H PRN PRN Reason: SBP > 160____ Dextrose/Water (Dextrose 50%) 25 gm SLOW IVP PRN PRN PRN Reason: Hypoglycemia Dicyclomine HCl (Bentyl) 10 mg IM ONE PRN PRN Reason: GI Cramping Stop: 12/25/18 20:32 Last Admin: 12/24/18 21:22 Dose: 10 mg Diphenhydramine HCl (Benadryl) 25 mg IVP Q3H PRN PRN Reason: Itching Diphenhydramine HCl (Benadryl) 25 mg PO Q3H PRN PRN Reason: Itching Diphenhydramine HCl (Benadryl) 25 mg IM Q3H PRN PRN Reason: Itching Famotidine (Pepcid) 20 mg SLOW IVP Q12HR [facility] Last Admin: 12/25/18 08:24 Dose: 20 mg Glucagon (Glucagon) 1 mg IM PRN PRN PRN Reason: Hypoglycemia Hydralazine HCl (Apresoline) 10 mg SLOW IVP Q4H PRN PRN Reason: SBP > 160 and HR < 70 Last Admin: 12/24/18 09:40 Dose: 10 mg Dextrose/Water (D5w) 1,000 mls @ 0 mls/hr IV .Q0M PRN PRN Reason: Hypoglycemia Levofloxacin 500 mg/ Device 100 mls @ 100 mls/hr IVPB Q24HR [facility] Last Admin: 12/25/18 09:51 Dose: 100 mls Acetaminophen 1,000 mg/ Device 100 mls @ 400 mls/hr IVPB Q8H PRN PRN Reason: Fever/Mild Pain Stop: 12/25/18 22:00 Last Admin: 04/14/19 08:24 Dose: 100 mls Sodium Chloride (Normal Saline 0.9%) 1,000 mls @ 75 mls/hr IV .[id number] [facility] Last Admin: 12/25/18 10:57 Dose: 1,000 mls Insulin Human Lispro (Humalog) 0 units SC .MILD SLIDING SCALE PRN PRN Reason: Mild Correctional Scale Insulin Human Lispro (Humalog) 0 units SC .BEDTIME SLIDING SC PRN PRN Reason: Bedtime Correctional Scale Lisinopril (Zestril) 20 mg PO 1700 [facility] Metoprolol Tartrate (Lopressor) 50 mg PO DAILY [facility] Naloxone HCl (Narcan) 0.2 mg IV Q5MIN PRN PRN Reason: Opiate Reversal Ondansetron HCl (Zofran) 4 mg IVP Q6H PRN PRN Reason: Nausea/Vomiting Pantoprazole Sodium (Protonix) 40 mg IVP DAILY [facility] Last Admin: 12/25/18 08:24 Dose: 40 mg Promethazine HCl (Phenergan) 12.5 mg IM Q4H PRN PRN Reason: Nausea/Vomiting Sodium Chloride (Flush - Normal Saline) 10 ml IVF Q12HR [facility] Last Admin: 12/25/18 08:24 Dose: 10 ml Sodium Chloride (Flush - Normal Saline) 10 ml IVF PRN PRN PRN Reason: Saline Flush Tamsulosin HCl (Flomax) 0.4 mg PO DAILY [facility] Zolpidem Tartrate (Ambien) 5 mg PO HSPRN PRN PRN Reason: Insomnia
[2018-12-25] MEDS: Lisinopril 20 MG TAB PO SCH (16:00)
--- NOTE | 2018-12-25 16:06 | PDOC.CTH ---
Cardiology Progress Note - Subjective The pt seen and examined. No overnight events. No cardiac complaints. - Objective Vital Signs Temp Pulse Pulse Resp BP BP BP 12/25/18 16:00 154/75 H 12/25/18 15:57 97.4 F L 62 16 154/75 H 12/25/18 11:43 97.4 F L 67 18 175/72 H 12/25/18 11:05 71 179/67 H 12/25/18 09:00 53 L 12/25/18 08:24 12/25/18 08:06 98.0 F 71 16 179/67 H 12/25/18 05:39 97.9 F 63 18 146/64 H BP Pulse Ox Pulse Ox 12/25/18 16:00 12/25/18 15:57 98 12/25/18 11:43 95 12/25/18 11:05 96 12/25/18 09:00 139/60 12/25/18 08:24 96 12/25/18 08:06 96 12/25/18 05:39 98 Weight 134 lb 8 oz 12/24/18 12/25/18 12/26/18 06:59 06:59 06:59 Intake Total 3230 3480 Output Total 625 775 Balance 2605 2705 - Physical Examination General/Neuro: alert & oriented x3 Neck: no JVD present Lungs: CTA (diminished at base) Heart: other: (irregualr) Abdomen: soft Extremities: other: (No edema) - Labs Result Diagrams: 12/24/18 04:45 12/24/18 04:45 Troponin/CKMB CK-MB (CK-2) 2.0 ng/mL (0-6.6) 12/24/18 00:44 Troponin I 0.119 ng/mL (< 0.028) H 12/24/18 00:44 - Assessment/Plan 1. SBO with S/p JOSEFA - pain is stable for now; managed by surgeon and GI 2. Aflutter/AFib - well controlled HR; Holding any OAC for now until clear by Surgeon/GI 3. CAD - stable. On BBlocker, statin; not on ASA until clear by Surgeon/GI 4. HTN - Metoprolol and Lisinopril were resumed from today 5. Hyperlipidemia - on statin 6. DM type 2 - managed by PCP 7. Anemia - stable 8. Chronic Combined HF - stable MAR reviewed * Will resume ASA/OAC when cleared by Surgeon/GI Review of Systems - Review of Systems Constitutional: reports: no symptoms reported EENTM: reports: no symptoms reported Respiratory: reports: no symptoms reported Cardiac (ROS): reports: no symptoms reported ABD/GI: reports: no symptoms reported : reports: no symptoms reported
[2018-12-26 05:22] LABS: Anion Gap 12 mmol/L (10-20); BUN (Urea Nitrogen) 11 mg/dL (8.4-25.7); Calc. Creatinine Clearance 42 mL/min (70-130); Calcium 8.4 mg/dL (7.8-10.44); Carbon Dioxide 19 mmol/L (23-31); Chloride 111 mmol/L (98-107); Estimated GFR-MDRD 68; Glucose 99 mg/dL (83-110); Potassium 3.6 mmol/L (3.5-5.1); Sodium 138 mmol/L (136-145)
[2018-12-26] MEDS: Tamsulosin HCl 0.4 MG CAP PO SCH (08:47)
[2018-12-26] MEDS: Metoprolol Tartrate 50 MG TAB PO SCH (08:47)
--- NOTE | 2018-12-26 12:15 | PDOC.CTH ---
Cardiology Progress Note - Subjective The pt seen and examined. No overnight events. No cardiac complaints. - Objective Vital Signs Temp Pulse Resp BP Pulse Ox 12/26/18 07:15 97.2 F L 63 18 173/65 H 97 12/26/18 04:00 97.4 F L 55 L 16 123/62 99 12/26/18 00:47 98.1 F 56 L 16 134/57 L 99 Weight 134 lb 8 oz 12/25/18 12/26/18 12/27/18 06:59 06:59 06:59 Intake Total 3480 827 1380 Output Total 775 1300 500 Balance 2705 -473 880 - Physical Examination General/Neuro: alert & oriented x3 Neck: no JVD present Lungs: CTA Heart: other: (irregular) Abdomen: soft Extremities: other: (No edema) - Labs Result Diagrams: 12/24/18 04:45 12/26/18 04:44 Troponin/CKMB CK-MB (CK-2) 2.0 ng/mL (0-6.6) 12/24/18 00:44 Troponin I 0.119 ng/mL (< 0.028) H 12/24/18 00:44 - Assessment/Plan 1. SBO with S/p JOSEFA - pain is stable for now; managed by surgeon and GI 2. Aflutter/AFib - well controlled HR; Holding any OAC for now until clear by Surgeon/GI 3. CAD - stable. On BBlocker, statin; not on ASA until clear by Surgeon/GI 4. HTN - stable 5. Hyperlipidemia - on statin 6. DM type 2 - managed by PCP 7. Anemia - stable 8. Chronic Combined HF - stable MAR reviewed * Will resume ASA/OAC when cleared by Surgeon/GI Pt. seen and eval. by me. I agree with the A/P by the PHOSPHORIC ACID OPERATOR. Chest clear. Irreg. rhythm. resume OAC as soon as possible for the afib/flutter. Review of Systems - Review of Systems Constitutional: reports: no symptoms reported EENTM: reports: no symptoms reported Respiratory: reports: no symptoms reported Cardiac (ROS): reports: no symptoms reported ABD/GI: reports: no symptoms reported : reports: no symptoms reported Musculoskeletal: reports: no symptoms reported
--- NOTE | 2018-12-26 13:25 | PDOC.PN ---
- Subjective Encounter Start Date: 12/26/18 Encounter Start Time: 13:23 Subjective: feels good.no abd pain/N/V -: cleared by GS for soft regular diet -: walking in hallways w PT w/o help from device - Objective Resuscitation Status - Order Detail: 12/21/18 12:36 Resuscitation Status Routine Co-Sign Provider: Resuscitation Status: FULL: Full Resuscitation MAR Reviewed: Yes Vital Signs & Weight: Vital Signs (12 hours) Temp Pulse Resp BP BP Pulse Ox 12/26/18 11:30 97.3 F L 60 16 171/90 H 100 12/26/18 07:15 97.2 F L 63 18 173/65 H 97 12/26/18 04:00 97.4 F L 55 L 16 123/62 99 Weight Weight 134 lb 8 oz I&O: 12/25/18 12/26/18 12/27/18 06:59 06:59 06:59 Intake Total 3480 827 1380 Output Total 775 1300 500 Balance 2705 -473 880 Result Diagrams: 12/24/18 04:45 12/26/18 04:44 Additional Labs: Accuchecks 12/26/18 12/26/18 12/25/18 11:37 05:14 20:17 POC Glucose 119 H 102 112 H 12/25/18 15:30 POC Glucose 121 H Phys Exam - Physical Examination Constitutional: NAD HEENT: PERRLA, moist MMs, sclera anicteric, oral pharynx no lesions Neck: no nodes, no JVD, supple, full ROM Respiratory: no wheezing, no rales, no rhonchi, clear to auscultation bilateral Cardiovascular: RRR, no significant murmur Gastrointestinal: soft, non-tender, no distention, positive bowel sounds Musculoskeletal: no edema, pulses present Neurological: non-focal, normal sensation, moves all 4 limbs Psychiatric: normal affect, A&O x 3 Skin: no rash Dx/Plan (1) SBO (small bowel obstruction) Code(s): K56.609 - UNSP INTESTNL OBST, UNSP TO PARTIAL VERSUS COMPLETE OBST Status: Acute Comment: s/p Sx.POD#5.Clinically improved and ready for DC (2) UTI (urinary tract infection) Status: Suspected Comment: Cx negative so far.Urinary retention.High risk for Infection.Empiric ABx (3) Acute metabolic encephalopathy Code(s): G93.41 - METABOLIC ENCEPHALOPATHY Status: Resolved (4) Anemia, normocytic normochromic Code(s): D64.9 - ANEMIA, UNSPECIFIED Status: Chronic (5) Atrial fibrillation and flutter Code(s): I48.91 - UNSPECIFIED ATRIAL FIBRILLATION; I48.92 - UNSPECIFIED ATRIAL FLUTTER Status: Chronic Comment: stable.on BB (6) CAD (coronary artery disease) Code(s): I25.10 - ATHSCL HEART DISEASE OF [place] CORONARY ARTERY W/O ANG PCTRS Status: Chronic Qualifiers: Comment: Meds on hold due to NPO status.On ASA,Plavix,BB and DOTTY-I at home (7) CKD (chronic kidney disease) stage 3, GFR 30-59 ml/min Code(s): N18.3 - CHRONIC KIDNEY DISEASE, STAGE 3 (MODERATE) Status: Chronic (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 Code(s): I50.42 - CHRONIC COMBINED SYSTOLIC AND DIASTOLIC HRT FAIL Status: Chronic Comment: stage C (9) Diabetes type 2, controlled Code(s): E11.9 - TYPE 2 DIABETES MELLITUS WITHOUT COMPLICATIONS Status: Chronic Qualifiers: Comment: PO Hypoglycemics on hold due to NPO status & Hypoglycemia risk (10) Dyslipidemia Code(s): E78.5 - HYPERLIPIDEMIA, UNSPECIFIED Status: Chronic (11) Hypertension Code(s): I10 - ESSENTIAL (PRIMARY) HYPERTENSION Status: Chronic Qualifiers: - Plan PT/OT, respiratory therapy, incentive spirometry, out of bed/ambulate, DVT proph w/SCDs Advance diet .DC home if tolerated & cleared by GS -: Pt declines rehab/SNU. wants to go home -: Will arrange HH -: rest as below.Supportive care -: urine Cx negative so far. Stop ABx if remains negative * . Review of Systems - Review of Systems Constitutional: negative: fever, chills, sweats, weakness, malaise, other ENT: negative: Ear Pain, Ear Discharge, Nose Pain, Nose Discharge, Nose Congestion, Mouth Pain, Mouth Swelling, Throat Pain, Throat Swelling, Other Respiratory: negative: Cough, Dry, Shortness of Breath, Hemoptysis, SOB with Excertion, Pleuritic Pain, Sputum, Wheezing Cardiovascular: negative: chest pain, palpitations, orthopnea, paroxysmal nocturnal dyspnea, edema, light headedness, other Gastrointestinal: negative: Nausea, Vomiting, Abdominal Pain, Diarrhea, Constipation, Melena, Hematochezia, Other Genitourinary: negative: Dysuria, Frequency, Incontinence, Hematuria, Retention , Other Musculoskeletal: negative: Neck Pain, Shoulder Pain, Arm Pain, Back Pain, Hand Pain, Leg Pain, Foot Pain, Other Neurological: negative: Weakness, Numbness, Incoordination, Change in Speech, Confusion, Seizures, Other - Medications/Allergies Allergies/Adverse Reactions: Allergies Allergy/AdvReac Type Severity Reaction Status Date / Time fentanyl Allergy Verified 02/12/18 18:01 Penicillins Allergy Verified 02/12/18 18:01 Medications: Current Medications Clonidine (Catapres) 0.1 mg PO Q4H PRN PRN Reason: SBP > 160____ Last Admin: 12/25/18 20:45 Dose: 0.1 mg Dextrose/Water (Dextrose 50%) 25 gm SLOW IVP PRN PRN PRN Reason: Hypoglycemia Diphenhydramine HCl (Benadryl) 25 mg IVP Q3H PRN PRN Reason: Itching Diphenhydramine HCl (Benadryl) 25 mg PO Q3H PRN PRN Reason: Itching Diphenhydramine HCl (Benadryl) 25 mg IM Q3H PRN PRN Reason: Itching Glucagon (Glucagon) 1 mg IM PRN PRN PRN Reason: Hypoglycemia Sodium Chloride (Normal Saline 0.9%) 1,000 mls @ 75 mls/hr IV .[id number] [facility] Last Admin: 12/25/18 20:43 Dose: 1,000 mls Insulin Human Lispro (Humalog) 0 units SC .MILD SLIDING SCALE PRN PRN Reason: Mild Correctional Scale Insulin Human Lispro (Humalog) 0 units SC .BEDTIME SLIDING SC PRN PRN Reason: Bedtime Correctional Scale Lisinopril (Zestril) 20 mg PO 1700 [facility] Last Admin: 12/25/18 16:00 Dose: 20 mg Metoprolol Tartrate (Lopressor) 50 mg PO DAILY [facility] Last Admin: 12/26/18 08:47 Dose: 50 mg Pantoprazole Sodium (Protonix) 40 mg PO DAILY [facility] Last Admin: 12/26/18 08:47 Dose: 40 mg Promethazine HCl (Phenergan) 12.5 mg IM Q4H PRN PRN Reason: Nausea/Vomiting Sodium Chloride (Flush - Normal Saline) 10 ml IVF Q12HR [facility] Last Admin: 12/26/18 08:47 Dose: Not Given Tamsulosin HCl (Flomax) 0.4 mg PO DAILY [facility] Last Admin: 12/26/18 08:47 Dose: 0.4 mg Zolpidem Tartrate (Ambien) 5 mg PO HSPRN PRN PRN Reason: Insomnia
[2018-12-26] MEDS: Acetaminophen 325 MG TAB PO PRN (17:40)
[2018-12-26] MEDS: Lisinopril 20 MG TAB PO SCH (17:40)
[2018-12-26] MEDS: Sodium Chloride 0.9% 1,000 ML IV SCH (17:41)
--- NOTE | 2018-12-26 21:59 | PDOC.GSPN ---
Surgery Progress Note: Subj - Subjective Narrative: Feels okay. Having bowel movements, tolerating fulls. Incisions look good. Ambulating w PT. A/P) Doing well. Advance diet. Possible home w HH PT if tolerates. Surgery Progress Note: Obj - Vital signs Vital signs: Vital Signs - Most Recent Temp Pulse Resp BP Pulse Ox 97.7 F 54 L 16 137/48 L 99 12/26/18 20:00 12/26/18 20:00 12/26/18 20:00 12/26/18 20:00 12/26/18 20:00 Surgery Progress Note: Results - Labs Result Diagrams: 12/24/18 04:45 12/26/18 04:44 Lab results: Laboratory Results - last 24 hr 12/26/18 12/26/18 12/26/18 11:37 15:38 20:48 POC Glucose 119 H 127 H 133 H
--- NOTE | 2018-12-26 22:40 | EKG ---
Test Reason : STAT Blood Pressure : / mmHG Vent. Rate : 072 BPM Atrial Rate : 096 BPM P-R Int : 000 ms QRS Dur : 108 ms QT Int : 402 ms P-R-T Axes : 000 -35 135 degrees QTc Int : 440 ms Atrial fibrillation Left axis deviation Septal infarct (cited on or before 20-DEC-2018) T wave abnormality, consider lateral ischemia Abnormal ECG When compared with ECG of 20-DEC-2018 20:13, (Unconfirmed) Serial changes of evolving Septal infarct Present Confirmed by Thuan NEWBERRY ([id number]) on 12/26/2018 10:40:44 PM Referred By: JAMES Confirmed By:Thuan NEWBERRY
[2018-12-27] MEDS: Sodium Chloride 0.9% 1,000 ML IV SCH (01:52)
[2018-12-27] MEDS: Acetaminophen 325 MG TAB PO PRN (02:55)
[2018-12-27 08:29] VITALS: TEMP 97.3
[2018-12-27] MEDS ORDERED: Apixaban 5 MG TAB PO SCH (09:00)
[2018-12-27] MEDS ORDERED: Aspirin 81 mg Enteric Coated Tablet PO SCH (09:00)
[2018-12-27] MEDS: Metoprolol Tartrate 50 MG TAB PO SCH (09:18)
[2018-12-27] MEDS: Tamsulosin HCl 0.4 MG CAP PO SCH (09:18)
[2018-12-27 11:38] VITALS: BP 144/73
== END 2018-12-27 13:22 | disposition home health service (06) | DRG 335 ==
LOC: ERS 19:28 → ERHOLD 12-21 01:24 → SURG B 12-21 15:36
PROVIDERS: ADMIT Specialist; ATTEND Specialist
PROC: 0DN84ZZ Release Small Intestine, Percutaneous Endoscopic Approach (ICD-10-PCS; principal; 2018-12-21)
DX: K56.609 Unspecified intestinal obstruction, unspecified as to partial versus complete obstruction (principal); G93.41 Metabolic encephalopathy; I13.0 Hypertensive heart and chronic kidney disease with heart failure and stage 1 through stage 4 chronic kidney disease, or unspecified chronic kidney disease; I50.42 Chronic combined systolic (congestive) and diastolic (congestive) heart failure; N39.0 Urinary tract infection, site not specified; I48.92 Unspecified atrial flutter; E78.5 Hyperlipidemia, unspecified; E11.22 Type 2 diabetes mellitus with diabetic chronic kidney disease; N18.3 Chronic kidney disease, stage 3 (moderate); I25.10 Atherosclerotic heart disease of native coronary artery without angina pectoris; I48.2 Chronic atrial fibrillation; F41.9 Anxiety disorder, unspecified; D63.1 Anemia in chronic kidney disease; K56.2 Volvulus; Z95.810 Presence of automatic (implantable) cardiac defibrillator; Z90.49 Acquired absence of other specified parts of digestive tract; Z79.82 Long term (current) use of aspirin; Z79.899 Other long term (current) drug therapy; Z79.84 Long term (current) use of oral hypoglycemic drugs
CPT/HCPCS: 36415; 36416; 74018; 74177; 80048; 80053; 81001; 82553; 83605; 83880; 84484; 85007; 85025; 85027; 87086; 93005; 93010; 96361; 96374; 96375; 96376; C9113; J0131; J0360; J0500; J0694; J1200; J1956; J2001; J2060; J2270; J2274; J2405; J2550; J2704; J3010; J3490; Q9966; S0028